=== PATIENT | male | born 1990 | race Caucasian/White ===

== ENCOUNTER 2019-05-15 12:10 | Emergency (ER) | payer BC, SELFPAY ==
[2019-05-15 12:23] VITALS: BP 132/79; PULSE 71; RESP 20; TEMP 36.6; O2SAT 100
--- NOTE | 2019-05-15 12:25 | ED.EAR ---
HPI - Ear Problem General Chief complaint: Ear Stated complaint: SORE THROAT Time Seen by Provider: 05/15/19 12:35 Source: patient and RN notes reviewed Mode of arrival: ambulatory Limitations: no limitations History of Present Illness HPI Narrative: Pt is a 28 y/o male who is a nonsmoker/nondrinker that presents to the with c/o a sore throat for a couple of days. Pt denies ear ache, cough, rhinorrhea, congestion, or fever. Pt has not been around anyone with the same Sx. He states that he works at [employer] and there was a stretch in time where there was no hot water. MD Complaint: other (sore throat) Duration: constant Associated symptoms ear: other (none) Treatment prior to arrival: none Related Data Home Medications Medication Instructions Recorded Confirmed benztropine 2 mg PO BID 05/15/19 05/15/19 ergocalciferol (vitamin D2) 1,250 mcg PO WEEKLY 05/15/19 05/15/19 folic acid 1 mg PO DAILY 05/15/19 05/15/19 guanfacine 2 mg PO DAILY 05/15/19 05/15/19 lithium carbonate 450 mg PO BID 05/15/19 05/15/19 olanzapine 10 mg PO BID 05/15/19 05/15/19 Allergies Allergy/AdvReac Type Severity Reaction Status Date / Time levothyroxine sodium Allergy Intermediate Depression Verified 05/15/19 12:19 gluten Allergy Unknown Vomiting Verified 05/15/19 12:19 ibuprofen Allergy Unknown Unknown Verified 05/15/19 12:19 lamotrigine Allergy Unknown Unknown Verified 05/15/19 12:19 Review of Systems Review of Systems: Narrative: General/Constitutional: No weight loss,fever Eyes: N0: Redness,discharge Ears/Nose/Throat: No: Epistaxis,ear discharge, ear ache, rhinorrhea. Reports sore throat Respiratory: Denies: Hemoptysis, congestion, cough Gastrointestinal: No Vomiting, Bleeding-rectal Skin: No Lumps, eruption Neurologic: No Focal Weakness,Sz Hematologic: Denies: Petechiae/Purpura Psychiatric: No: Suicida ideationl All Other Systems: Reviewed and Negative PMF Past Medical History Medical History ADHD Anxiety Bipolar 1 disorder Surgical History Surgical History H/O inguinal hernia repair Family History Family History (Updated 11/12/15 @ 23:21 by DOCTOR UNKNOWN) Mother Patient's mother is in good health Father Patient's father is in good health Social History Social History Smoking status: Never smoker Alcohol intake: never Comments At time of signature, agree with nursing past medical, surgical, social and family history. There is no relevant family history pertinent to the presenting complaint Exam Narrative: Exam Narrative: General Appearance: Well appearing, Well nourished EYE: PERRLA, Conjunctiva clear Ears: Auditory canal normal, TM normal Nose: Rhinorrhea, Mucousal erythema Mouth/Throat: MM moist, Uvula midline, Pharyngeal erythema Neck: Supple, No adenopathy Respiratory: No respiratory distress, Breath sounds equal, Clear to auscultation Cardiovascular: RRR, No JVD Musculoskeletal: Non tender, Normal strength Skin: Warm, Dry Neurological: A&O x3, CN II-XII intact Psychiatric: Normal mood, Normal affect Course Vital Signs Vital signs: Vital Signs Temperature 97.9 F 05/15/19 12:23 Pulse Rate 71 05/15/19 12:23 Respiratory Rate 05/15/19 12:23 Blood Pressure 132/79 05/15/19 12:23 Pulse Oximetry 100 05/15/19 12:23 Temperature 97.9 F 05/15/19 12:23 Pulse Rate 71 05/15/19 12:23 Respiratory Rate 05/15/19 12:23 Blood Pressure 132/79 05/15/19 12:23 Pulse Oximetry 100 05/15/19 12:23 Medical Decision Making Vital Signs Vital Signs: Vital Signs Temperature 97.9 F 05/15/19 12:23 Pulse Rate 71 05/15/19 12:23 Respiratory Rate 05/15/19 12:23 Blood Pressure 132/79 05/15/19 12:23 Pulse Oximetry 100 05/15/19 12:23 Temperature 97.9 F 05/15/19 12:23 Pulse Rate 71
== END 2019-05-15 12:54 | disposition home or self-care (01) ==
PROVIDERS: Emergency Provider Emergency Medicine; PCP Nurse Practitioner Family
DX: J02.9 Acute pharyngitis, unspecified (principal)
CPT/HCPCS: 99213; G0463

== ENCOUNTER → 2019-06-05 14:30 | Outpatient (CLI) | payer BC, SELFPAY ==
--- NOTE | ~2019-06-05 | XR_ITS ---
EXAMINATION: XR lumbar spine 2-3V EXAM DATE: 06/05/2019 15:38 INDICATION: Backache. TECHNIQUE: Lumber spine frontal, lateral, lateral L5-S1 projections for interpretation. There is no prior study for comparison. FINDINGS: There is 2-3 mm retrolisthesis L3 on L4 and L4 on L5. There is mild upper lumbar, moderate lower lumbar facet arthropathy. Sacrum, sacroiliac joints, sacral arcuate lines are intact. Paraspina l soft tissue is unremarkable. No spondylolysis suspected. IMPRESSION: Moderate lower, mild upper lumbar facet arthropathy. Reviewed, dictated and finalized at location A. 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
--- NOTE | ~2019-06-05 | XR_ITS ---
EXAMINATION: XR thoracic spine 2V EXAM DATE: 06/05/2019 15:38 INDICATION: Backache. TECHNIQUE: Frontal and lateral projections of the thoracic spine as well as lateral swimmers projecti on of the upper thoracic spine for interpretation. There is no prior study for comparison. FINDINGS: Minimal mid and lower thoracic disc disease. The vertebral bodies are aligned in the AP dim ension. Vertebral body and disc heights are well-maintained. Paraspinal soft tissue is unremarkable. IMPRESSION: Minimal thoracic spondylosis. Reviewed, dictated and finalized at location A. HNUT ICER
--- NOTE | ~2019-06-05 | XR_ITS ---
EXAMINATION: XR_CERV2-3V_CR EXAM DATE: 06/05/2019 15:38 INDICATION: Cervical pain. TECHNIQUE: Cervical spine frontal, lateral, and open-mouth odontoid projections. There is no prior study for comparison. FINDINGS: There is mild cervical facet arthropathy. There is no evidence of acute cervical fracture. The odontoid process is intact. Pre-dens space is normal. Prevertebral soft tissue is normal. Th ere are no soft tissue abnormalities identified. The vertebral bodies are aligned. Vertebral body and disc heights are well-maintained. IMPRESSION: 1. Mild cervical facet arthropathy. Reviewed, dictated and finalized at location A. 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
== END ==
PROVIDERS: PCP Nurse Practitioner Family; Visit Provider Nurse Practitioner Family
DX: M47.814 Spondylosis without myelopathy or radiculopathy, thoracic region (principal); M47.812 Spondylosis without myelopathy or radiculopathy, cervical region
CPT/HCPCS: 72040; 72070; 72100

== ENCOUNTER 2019-10-09 21:14 | Emergency (ER) | payer OTHER, SELFPAY ==
--- NOTE | ~2019-10-09 | CT_ITS ---
EXAMINATION: CT abdomen pelvis w con INDICATION: Right lower quadrant pain and fever TECHNIQUE: Computed tomographic images of the abdomen and pelvis were obtained after the administrati on of 100 cc of Omnipaque 350 intravenous contrast. The dose-length product (DLP) was 458.99 mGy-cm. Automated exposure control and iterative reconstruction technique were employed. COMPARISON: 07/21/2018 FINDINGS: The lung bases are clear. The heart size is normal. The liver, spleen, pancreas, gallbladde r, and adrenal glands are normal. The kidneys are unremarkable. No pathologically enlarged abdominal or pelvic lymph nodes are identified. There is no free intraperitoneal gas or evidence of bowel obstr uction. The appendix is normal. There is marked distention of the urinary bladder. IMPRESSION: 1. No CT correlate for the patient's symptoms. Reviewed, dictated and finalized at location A.
[2019-10-09 21:17] VITALS: BP 147/97; PULSE 91; RESP 100; TEMP 36.8; O2SAT 100
[2019-10-09 22:19] VITALS: BP 144/95; PULSE 79; RESP 19; O2SAT 99
[2019-10-09] MEDS: SODIUM CHLORIDE 0.9% IV 1,000 ML 999 ML IV CONT (22:35)
[2019-10-09 22:43] LABS: Basophils Absolute Auto 0.1 K/mm3 (0.0-0.1); Basophils Percent Auto 0.7 % (0.2-1.2); Eosinophils Absolute Auto 0.1 K/mm3 (0-0.3); Eosinophils Percent Auto 0.9 % (0-4.4); Hematocrit 45.4 % (42.0-52.0); Hemoglobin 15.3 g/dL (14.0-18.0); Immature Granulocyte Absolute 0.12 K/mm3 (0.00-0.031); Lymphocytes Absolute Auto 2.26 K/mm3 (0.9-3.2); Lymphocytes Percent Auto 19.3 % (18.3-44.2); Mean Corpuscular HGB Conc 33.7 g/dl (32-36); Mean Corpuscular Hemoglobin 29.3 pg (26-34); Mean Corpuscular Volume 86.8 fl (80-100); Mean Platelet Volume 9.7 fl (7.4-10.4); Monocytes Absolute Auto 1.1 K/mm3 (0.1-0.6); Monocytes Percent Auto 9.7 % (2.6-8.5); Neutrophils Percent Auto 68.4 % (45.5-73.1); Platelet Count Result 253 k/mm3 (150-375); Red Blood Count 5.23 M/mm3 (4.6-6.20); White Blood Count 11.7 K/mm3 (4.5-10.0)
[2019-10-09 22:56] LABS: Blood Urea Nitrogen 15 mg/dL (9-20); Calcium 9.5 mg/dL (8.4-10.2); Carbon Dioxide 27 mmol/L (22-30); Chloride 104 mmol/L (98-107); Estimated CRCL calculation 118 ml/min; Estimated Glomerular Filt Rate > 60; Glucose 97 mg/dL (75-110); Potassium 3.8 mmol/L (3.4-5.0); Sodium 136 mmol/L (137-145)
[2019-10-10 00:07] VITALS: BP 98/63; PULSE 63; RESP 16; TEMP 37.1; O2SAT 98
--- NOTE | 2019-10-10 00:46 | ED.FEVER ---
HPI - Fever General Chief Complaint: Fever Stated Complaint: fever/ exhausted Time Seen by Provider: 10/09/19 22:15 History of Present Illness HPI Narrative: Patient is a 28-year-old male who presents ER with concerns for fever. Reports his temperature was 101 ?F. Reports it occurred when he was being screened at a local establishment where he got no facial. He has no runny nose/sore throat/cough. He has had 1 loose stools today and has some mild lower abdominal discomfort related to it. No burning urination or urinary frequency. No known contacts with COVID-19. Related Data Home Medications Medication Instructions Recorded Confirmed benztropine 2 mg PO BID 05/15/19 05/15/19 folic acid 1 mg PO DAILY 05/15/19 05/15/19 guanfacine 2 mg PO DAILY 05/15/19 05/15/19 lithium carbonate 450 mg PO BID 05/15/19 05/15/19 olanzapine 10 mg PO BID 05/15/19 05/15/19 Allergies Allergy/AdvReac Type Severity Reaction Status Date / Time levothyroxine sodium Allergy Intermediate Depression Verified 10/09/19 22:20 gluten Allergy Unknown Vomiting Verified 10/09/19 22:20 ibuprofen Allergy Unknown Unknown Verified 10/09/19 22:20 lamotrigine Allergy Unknown Unknown Verified 10/09/19 22:20 Review of Systems Review of Systems: All systems reviewed & are unremarkable except as noted in HPI and below Constitutional: Constitutional: Denies chills, Denies fatigue and Reports fever(s) ENT: Denies nasal congestion and Denies sore throat Cardiovascular: Cardiovascular: Denies chest pain and Denies radiating jaw, neck or arm pain Gastrointestinal: Gastrointestinal: Reports abdominal pain, Reports diarrhea, Denies nausea and Denies vomiting Genitourinary: Genitourinary: Denies dysuria and Denies urinary frequency Musculoskeletal: Musculoskeletal: Denies back pain and Denies muscle cramps PMFSH Family History Family History (Updated 11/12/15 @ 23:21 by DOCTOR UNKNOWN) Mother Patient's mother is in good health Father Patient's father is in good health Social History Social History Smoking status: Never smoker Alcohol intake: never Exam Narrative: Exam Narrative: GENERAL: Well-appearing, well-nourished, and in no acute distress. HEAD: Normocephalic, atraumatic. ENT: Mucous membranes moist. CHEST: Clear to auscultation. No respiratory distress. HEART: Regular rate and rhythm. Normal peripheral pulses. ABDOMEN: Soft, TTP to the RLQ w/o guarding, nondistended. EXTREMITIES: Normal range of motion. No edema. SKIN: Warm, dry, no rash. NEURO: Alert and oriented x3. Course MEDICAL ASSISTANT CARDIOLOGY/PA Physician Supervision Unremarkable evaluation. Discharge home. Vital Signs Vital signs: Vital Signs Temperature 98.3 F 10/09/19 21:17 Pulse Rate 91 10/09/19 21:17 Respiratory Rate 100 H 10/09/19 21:17 Blood Pressure 147/97 H 10/09/19 21:17 Pulse Oximetry 100 10/09/19 21:17 Temperature 98.7 F 10/10/19 00:07 Pulse Rate 63 10/10/19 00:07 Respiratory Rate 16 10/10/19 00:07 Blood Pressure 98/63 L 10/10/19 00:07 Pulse Oximetry 98 10/10/19 00:07 MDM - Fever Lab Data Result diagrams: 10/09/19 22:36 10/09/19 22:36 Labs: Lab Results 10/09/19 10/09/19 Range/Units 22:36 22:36 WBC 11.7 H (4.5-10.0) K/mm3 RBC 5.23 (4.6-6.20) M/mm3 Hgb 15.3 (14.0-18.0) g/dL Hct 45.4 (42.0-52.0) % MCV 86.8 (80-100) fl MCH 29.3 (26-34) pg MCHC 33.7 (32-36) g/dl RDW 12.0 (11.5-14.5) % Plt Count 253 (150-375) k/mm3 MPV 9.7 (7.4-10.4) fl Immature Gran % (Auto) 1.0 H (0-0.5) % Neut % (Auto) 68.4 (45.5-73.1) % Lymph % (Auto) 19.3 (18.3-44.2) % [place] % (Auto) 9.7 H (2.6-8.5) % Eos % (Auto) 0.9 (0-4.4) % Baso % (Auto) 0.7 (0.2-1.2) % Lymph # (Auto) 2.26 (0.9-3.2) K/mm3 [place] # (Auto) 1.1 H (0.1-0.6) K/mm3 Eos # (Auto) 0.1 (0-0.3) K/mm3 Baso # (Auto) 0.1 (0.0-0.1) K/mm3 Abs Immat Gr
== END 2019-10-10 01:17 | disposition home or self-care (01) ==
PROVIDERS: Emergency Provider Emergency Medicine; PCP Nurse Practitioner Family
DX: B34.9 Viral infection, unspecified (principal)
CPT/HCPCS: 36415; 74177; 80048; 85025; 96360; 96361; 99284; J7030; Q9967

== ENCOUNTER 2019-10-10 13:35 | Emergency (ER) | payer OTHER, SELFPAY ==
--- NOTE | 2019-10-10 14:00 | PC.NURSE ---
Left prior to being seen--decided to go back to the ER-he was there last night and received hydration but is continuing to feel bad and wants hydration and reevalution.
== END 2019-10-10 14:08 | disposition home or self-care (01) ==
LOC: EXPCOLL 13:38
PROVIDERS: Emergency Provider Nurse Practitioner; PCP Nurse Practitioner Family
DX: Z53.21 Procedure and treatment not carried out due to patient leaving prior to being seen by health care provider (principal)
CPT/HCPCS: 99199

== ENCOUNTER 2020-04-26 17:15 | Emergency (ER) | payer OTHER, SELFPAY ==
--- NOTE | ~2020-04-26 | XR_ITS ---
EXAMINATION: XR chest 1V portable DATE: 04/26/2020 19:07 INDICATION: Chills. Tingling extending from the right shoulder to fingertips. TECHNIQUE: frontal view of the chest was obtained. COMPARISON: Chest radiograph dated 05/29/2012 FINDINGS: Unchanged small calcified nodule in the right lower lung zone consistent with old granulomatous disea se. No other airspace opacities, pulmonary edema, pleural effusion or pneumothorax. The cardiomediast inal silhouette is normal. Minimal S-shaped thoracic curvature. IMPRESSION: 1. No acute cardiopulmonary disease. Reviewed, dictated and finalized at location A. 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
[2020-04-26 17:21] VITALS: BP 142/92; PULSE 89; RESP 14; TEMP 36.8; O2SAT 100
[2020-04-26 18:46] VITALS: BP 136/88; PULSE 77; RESP 15; O2SAT 98
--- NOTE | 2020-04-26 20:20 | ED.GENADULT ---
HPI - General Adult General Chief complaint: Unspecified Stated complaint: chills Time Seen by Provider: 04/26/20 18:48 Source: patient Mode of arrival: ambulatory Limitations: no limitations History of Present Illness HPI narrative: Patient 29-year-old male who presents to emergency department for evaluation of right upper extremity burning and tingling that began while at work patient denies injury or trauma or similar occurrence in the past patient denies taking thing for his symptoms and on arrival is in no distress and does not recall any injury or similar occurrence patient on arrival is in no distress Related Data Home Medications Medication Instructions Recorded Confirmed benztropine 2 mg PO BID 05/15/19 05/15/19 folic acid 1 mg PO DAILY 05/15/19 05/15/19 guanfacine 2 mg PO DAILY 05/15/19 05/15/19 lithium carbonate 450 mg PO BID 05/15/19 05/15/19 olanzapine 10 mg PO BID 05/15/19 05/15/19 buspirone mg 04/26/20 Allergies Allergy/AdvReac Type Severity Reaction Status Date / Time levothyroxine sodium Allergy Intermediate Depression Verified 04/26/20 19:14 gluten Allergy Unknown Vomiting Verified 04/26/20 19:14 ibuprofen Allergy Unknown Unknown Verified 04/26/20 19:14 lamotrigine Allergy Unknown Unknown Verified 04/26/20 19:14 Review of Systems Review of Systems: All systems reviewed & are unremarkable except as noted in HPI and below PMFSH Past Medical History Medical History (Updated 04/26/20 @ 20:23 by Johnie Cisneros PA-C) ADHD Anxiety Bipolar 1 disorder Surgical History Surgical History H/O inguinal hernia repair Family History Family History (Updated 11/12/15 @ 23:21 by DOCTOR UNKNOWN) Mother Patient's mother is in good health Father Patient's father is in good health Social History Social History Smoking status: Never smoker Alcohol intake: never Exam Narrative: Exam Narrative: GENERAL: Well-appearing, well-nourished, and in no acute distress. HEAD: Normocephalic, atraumatic. EYES: PERRLA and EOMI. ENT: Nares clear, no rhinorrhea or epistaxis. Mucous membranes moist. NECK: Supple. No adenopathy or masses. CHEST: Clear to auscultation. No respiratory distress. No wheezes rales or rhonchi HEART: Regular rate and rhythm. No murmur heard. Normal peripheral pulses. EXTREMITIES: Normal range of motion. No edema. Tenderness of the right upper paraspinal thoracic region no midline cervical or thoracic tenderness no deformity of the right upper extremity SKIN: Warm, dry, no rash. NEURO: No focal deficits. Alert and oriented x3. Neurovascularly intact. Capillary refill less than 2 seconds PSYCH: Normal mood and affect. Course Course Emergency Course: Patient in the room no distress aware of case findings treatment plan diagnosis felt appropriate for discharge home Vital Signs Vital signs: Vital Signs Temperature 98.2 F 04/26/20 17:21 Pulse Rate 89 04/26/20 17:21 Respiratory Rate 14 04/26/20 17:21 Blood Pressure 142/92 H 04/26/20 17:21 Pulse Oximetry 100 04/26/20 17:21 Temperature 98.2 F 04/26/20 17:21 Pulse Rate 77 04/26/20 18:46 Respiratory Rate 15 04/26/20 18:46 Blood Pressure 136/88 04/26/20 18:46 Pulse Oximetry 98 04/26/20 18:46 Medical Decision Making MDM Narrative Medical decision making narrative: Patients injury or pain is consistent with musculoskeletal etiology. No signs of neurological or vascular compromise on exam. Compartments and tisues are soft without signs of compartment syndrome. Pain is felt appropriate for further evaluation on an outpatient basis. Vital Signs Vital Signs: Vital Signs Temperature 98.2 F 04/26/20 17:21 Pulse Rate 89 04/26/20 17:21 Respiratory Rate 14 04/26/20 17:21 Blood Pressure 142/92 H 04/26/20 17:21 Pulse Oximetry 100 04/26/20 17:21 Temperature 98.2 F 01
== END 2020-04-26 20:31 | disposition home or self-care (01) ==
PROVIDERS: Emergency Provider Emergency Medicine; PCP Nurse Practitioner Family
DX: M79.601 Pain in right arm (principal); F90.9 Attention-deficit hyperactivity disorder, unspecified type; F41.9 Anxiety disorder, unspecified; F31.9 Bipolar disorder, unspecified
CPT/HCPCS: 71045; 99283

== ENCOUNTER 2020-05-08 11:01 | Emergency (ER) | payer OTHER, SELFPAY ==
--- NOTE | ~2020-05-08 | CT_ITS ---
EXAMINATION: CT cervical spine wo con DATE: 05/08/2020 11:52 INDICATION: Bilateral arm numbness TECHNIQUE: Computed tomography (CT) of the cervical spine was performed without intravenous contrast. The dose-length product (DLP) was 365.40 mGy-cm. Automated exposure control and iterative reconstruc tion technique were employed. COMPARISON: None FINDINGS: There is no fracture, dislocation, or subluxation. The vertebral body heights, alignment, a nd intervertebral disc spaces are normal. The paravertebral soft tissues are unremarkable. The odonto id is intact. IMPRESSION: 1. Unremarkable cervical spine. Reviewed, dictated and finalized at location A. 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
[2020-05-08 11:02] VITALS: BP 141/93; PULSE 76; RESP 20; TEMP 36.5; O2SAT 96
--- NOTE | 2020-05-08 12:23 | ED.GENADULT ---
HPI - General Adult General Chief complaint: Unspecified Stated complaint: R ARM NUMBNESS [id number] Time Seen by Provider: 05/08/20 11:10 Source: patient and old records reviewed Mode of arrival: ambulatory Limitations: no limitations History of Present Illness HPI narrative: Patient is a 29-year-old male who presents with right arm numbness tingling and occasional weakness has been going on for roughly a month, presented to the emergency department for this in the past patient has not taken anything for his symptoms patient denies injury trauma patient notes that he does get his neck adjusted roughly 5 times a week patient had seen primary care was reassured and advised to follow-up in the recent past patient otherwise has no other complaints presents in no distress Related Data Home Medications Medication Instructions Recorded Confirmed benztropine 2 mg PO BID 05/15/19 05/15/19 folic acid 1 mg PO DAILY 05/15/19 05/15/19 guanfacine 2 mg PO DAILY 05/15/19 05/15/19 lithium carbonate 450 mg PO BID 05/15/19 05/15/19 olanzapine 10 mg PO BID 05/15/19 05/15/19 buspirone mg 04/26/20 Allergies Allergy/AdvReac Type Severity Reaction Status Date / Time levothyroxine sodium Allergy Intermediate Depression Verified 05/08/20 11:08 gluten Allergy Unknown Vomiting Verified 05/08/20 11:08 ibuprofen Allergy Unknown Unknown Verified 05/08/20 11:08 lamotrigine Allergy Unknown Unknown Verified 05/08/20 11:08 Review of Systems Review of Systems: All systems reviewed & are unremarkable except as noted in HPI and below PMFSH Past Medical History Medical History (Updated 05/08/20 @ 12:27 by Johnie Cisneros PA-C) ADHD Anxiety Bipolar 1 disorder Surgical History Surgical History H/O inguinal hernia repair Family History Family History (Updated 11/12/15 @ 23:21 by DOCTOR UNKNOWN) Mother Patient's mother is in good health Father Patient's father is in good health Social History Social History Smoking status: Never smoker Alcohol intake: never Gender identity (if verbalized by the patient): Male Exam Narrative: Exam Narrative: GENERAL: Well-appearing, well-nourished, and in no acute distress. HEAD: Normocephalic, atraumatic. EYES: PERRLA and EOMI. ENT: Nares clear, no rhinorrhea or epistaxis. Mucous membranes moist. CHEST: Clear to auscultation. No respiratory distress. No wheezes rales or rhonchi HEART: Regular rate and rhythm. No murmur heard. Normal peripheral pulses. EXTREMITIES: Normal range of motion. No edema. No midline paraspinal cervical tenderness. No tenderness of the right upper extremity SKIN: Warm, dry, no rash. NEURO: No focal deficits. Alert and oriented x3. Cranial nerves II through XII grossly intact. Motor and sensory intact and symmetrical. Neurovascularly intact. Normal speech and gait PSYCH: Normal mood and affect. Course Course Emergency Course: Patient evaluated in the emergency department for paresthesias to the right upper extremity discharged back to primary care for further evaluation given reasons to return vital signs and ABCs intact and stable felt appropriate for outpatient reevaluation Vital Signs Vital signs: Vital Signs Temperature 97.7 F 05/08/20 11:02 Pulse Rate 76 05/08/20 11:02 Respiratory Rate 20 05/08/20 11:02 Blood Pressure 141/93 H 05/08/20 11:02 Pulse Oximetry 96 05/08/20 11:02 Temperature 97.7 F 05/08/20 11:02 Pulse Rate 76 05/08/20 11:02 Respiratory Rate 20 05/08/20 11:02 Blood Pressure 141/93 H 05/08/20 11:02 Pulse Oximetry 96 05/08/20 11:02 Medical Decision Making MDM Narrative Medical decision making narrative: Patients injury or pain is consistent with musculoskeletal etiology. No signs of neurological or vascular compromise on exam. Compartments and tisues are soft without signs of compartment syndrom
== END 2020-05-08 12:51 | disposition home or self-care (01) ==
PROVIDERS: Emergency Provider Family Medicine; PCP Physician Assistant
DX: R20.2 Paresthesia of skin (principal); F90.9 Attention-deficit hyperactivity disorder, unspecified type; F41.9 Anxiety disorder, unspecified; F31.9 Bipolar disorder, unspecified
CPT/HCPCS: 72125; 99284

== ENCOUNTER 2020-06-08 21:47 | Emergency (ER) | payer OTHER, SELFPAY ==
--- NOTE | ~2020-06-08 | CT_ITS ---
EXAMINATION: CT brain wo con, CT cervical spine wo con EXAM DATE: 06/09/2020 01:51 (accession [id number]), 06/09/2020 01:52 (accession [id number]) INDICATION: Syncope. Dizziness. Nausea and vomiting. TECHNIQUE: Spiral CT of the head was performed without contrast. Axial, coronal and sagittal images were reviewed. Spiral CT of the cervical spine was performed without contrast. Axial images were rev iewed. Coronal and sagittal reformatted images were also reviewed. The dose-length product (DLP) fo r this examination was 681.00 (accession [id number]), 461.50 (accession [id number]) mGy-cm. The exposure was tailored according to patient size, and iterative reconstruction (ASIR) was used as additional dose reduction technique. Comparison is made to prior examination from 05/29/[address], 05/08/[address] FINDINGS: HEAD CT: There is no acute intraparenchymal hemorrhage. No evidence of intraparenchymal brain mass l esion. No evidence of acute infarction. There is no mass effect or midline shift. There is no obstru ctive hydrocephalus suspected. There are no extra-axial collections. There are no acute calvarial f ractures. The orbits are unremarkable. Soft tissue is unremarkable. Minimal left maxillary sinus m ucoperiosteal thickening. CERVICAL CT: There is no evidence of acute cervical fracture. The odontoid process is intact. Pre- dens space is normal. Prevertebral soft tissue is normal. There are no soft tissue abnormalities id entified. There is no disc space widening or traumatic vertebral body subluxation suspected. The ve rtebral bodies are aligned in the AP dimension. Vertebral body and disc heights are well-maintained. No more than mild cervical facet and uncovertebral joint arthropathy without central canal or neural foraminal stenosis. The discs appear to be confined to their endplate margins. Lung apices unremarkab le. IMPRESSION: 1. No acute intracranial findings or cervical fracture. Reviewed, dictated and finalized at location B. H CUTTER IMPRESSION: 1. No acute intracranial findings or cervical fracture.
--- NOTE | 2020-06-08 21:50 | ECG_ITS ---
Measurements Intervals [place] Rate: 71 P: 70 IL: 130 QRS: 87 QRSD: 93 T: 35 QT: 378 QTc: 412 Interpretive Statements SINUS RHYTHM RSR' IN V1 OR V2, CONSIDER RIGHT VENTRICULAR HYPERTROPHY OR RIGHT VCD MINIMAL Q WAVES- ANTEROLAT/INF LEADS BASELINE ARTIFACT- V1-V2 BORDERLINE ECG Electronically Signed On 06-09-2020 6:51:36 PAYROLL OFFICER by Javier Beckwith D.O.
[2020-06-08 22:18] VITALS: BP 131/85; PULSE 82; RESP 15; TEMP 36.8; O2SAT 100
[2020-06-08 22:34] LABS: Basophils Absolute Auto 0.1 K/mm3 (0.0-0.1); Basophils Percent Auto 0.7 % (0.2-1.2); Eosinophils Absolute Auto 0.1 K/mm3 (0-0.3); Eosinophils Percent Auto 1.2 % (0-4.4); Hematocrit 41.5 % (42.0-52.0); Hemoglobin 14.4 g/dL (14.0-18.0); Immature Granulocyte Absolute 0.02 K/mm3 (0.00-0.031); Immature Granulocyte Percent A 0.2 % (0-0.5); Lymphocytes Absolute Auto 1.81 K/mm3 (0.9-3.2); Lymphocytes Percent Auto 19.7 % (18.3-44.2); Mean Corpuscular HGB Conc 34.7 g/dl (32-36); Mean Corpuscular Hemoglobin 29.6 pg (26-34); Mean Corpuscular Volume 85.4 fl (80-100); Mean Platelet Volume 9.2 fl (7.4-10.4); Monocytes Percent Auto 11.2 % (2.6-8.5); Neutrophils Absolute Auto 6.2 K/mm3 (1.3-6.7); Platelet Count Result 252 k/mm3 (150-375); Red Blood Count 4.86 M/mm3 (4.6-6.20); Red Cell Distribution Width 12.3 % (11.5-14.5); White Blood Count 9.2 K/mm3 (4.5-10.0)
[2020-06-08 22:47] LABS: Alanine Aminotransferase 16 U/L (4-50); Albumin Level 4.4 g/dL (3.5-5.1); Alkaline Phosphatase 65 U/L (38-126); Anion Gap 9 mmol/L (8-16); Aspartate Amino Transferase 21 U/L (17-59); Bilirubin,Total 0.3 mg/dL (0.2-1.3); Blood Urea Nitrogen 16 mg/dL (9-20); Calcium 9.4 mg/dL (8.4-10.2); Carbon Dioxide 27 mmol/L (22-30); Chloride 104 mmol/L (98-107); Estimated CRCL calculation 132 ml/min; Estimated Glomerular Filt Rate > 60; Glucose 111 mg/dL (75-110); Lipase 60 U/L (23-300); Potassium 3.7 mmol/L (3.4-5.0); Sodium 140 mmol/L (137-145)
[2020-06-09 00:20] VITALS: BP 109/68; PULSE 100; RESP 12; O2SAT 100
--- NOTE | 2020-06-09 01:43 | ED.SYNCOPE ---
HPI - Syncope General Chief Complaint: Syncope Stated Complaint: syncope, n/v, dizzy Time Seen by Provider: 06/09/20 01:34 Source: patient and family Mode of arrival: ambulatory Limitations: no limitations History of Present Illness HPI narrative: 29-year-old male was brought into the emergency department with his family members for a reported syncopal episode. Patient stated that he is been feeling dizzy and lightheaded that he describes as both world spinning and lightheadedness. Patient states that some of his psychiatric medications have been altered in their dosages. He is not sure if this could be playing a role. Just before arrival the patient states that he was in his bathroom when he passed out. His parents state that they tried to open the door to the bathroom but his body was blocking it. Eventually they were able to push him out of the way and get into the room. He was unconscious and had hit his head. Patient states that he does not recall hitting his head but feels fine at the time of my interview. Related Data Home Medications Medication Instructions Recorded Confirmed benztropine 2 mg PO BID 05/15/19 05/15/19 folic acid 1 mg PO DAILY 05/15/19 05/15/19 guanfacine 2 mg PO DAILY 05/15/19 05/15/19 lithium carbonate 450 mg PO BID 05/15/19 05/15/19 olanzapine 10 mg PO BID 05/15/19 05/15/19 buspirone mg 04/26/20 Allergies Allergy/AdvReac Type Severity Reaction Status Date / Time levothyroxine sodium Allergy Intermediate Depression Verified 05/08/20 11:08 gluten Allergy Unknown Vomiting Verified 05/08/20 11:08 ibuprofen Allergy Unknown Unknown Verified 05/08/20 11:08 lamotrigine Allergy Unknown Unknown Verified 05/08/20 11:08 Review of Systems Review of Systems: Narrative: CONSTITUTIONAL: Denies fever, chills, or sweats. EYES: Denies visual changes, redness, or discharge. ENT: Denies rhinorrhea, congestion, sore throat, or otalgia. CARDIOVASCULAR: Denies chest pain, palpitations, or edema. RESPIRATORY: Denies cough or dyspnea. GASTROINTESTINAL: Denies abdominal pain, nausea, vomiting, or diarrhea. GENITOURINARY: Denies dysuria or hematuria. SKIN: Denies rash or itching. MUSCULOSKELETAL: Denies back pain, joint pain, or myalgia. NEUROLOGIC: Denies headache, numbness, dizziness, or weakness. PSYCHIATRIC: Denies anxiety or depression. [facility] Past Medical History Medical History (Updated 06/09/20 @ 03:04 by Ismael Govea DO) ADHD Anxiety Bipolar 1 disorder Surgical History Surgical History H/O inguinal hernia repair Family History Family History Mother Patient's mother is in good health Father Patient's father is in good health Social History Social History Smoking status: Never smoker Alcohol intake: never Gender identity (if verbalized by the patient): Male Exam Narrative: Exam Narrative: GENERAL: Well-appearing, well-nourished, and in no acute distress. Multicolored hair, blue sparkly fingernails, presents with stuffed animal HEAD: Normocephalic, atraumatic. EYES: PERRLA and EOMI. ENT: Nares clear, no rhinorrhea or epistaxis. Mucous membranes moist. NECK: Supple. No adenopathy or masses. No carotid bruits or JVD CHEST: Clear to auscultation. No respiratory distress. No wheezes rales or rhonchi HEART: Regular rate and rhythm. No murmur heard. Normal peripheral pulses. ABDOMEN: Soft, nontender, nondistended, normal active bowel sounds. EXTREMITIES: Normal range of motion. No edema. SKIN: Warm, dry, no rash. NEURO: No focal deficits. Alert and oriented x3. PSYCH: Normal mood and affect. Course Vital Signs Vital signs: Vital Signs Temperature 36.8 C 06/08/20 22:18 Pulse Rate 82 06/08/20 22:18 Respiratory Rate 15 06/08/20 22:18 Blood Pressure 131/85 06/08/20 22:18 Pulse Oximetry 100 06/08/20 22:18
[2020-06-09 01:53] VITALS: BP 150/103; PULSE 69; RESP 15; O2SAT 100
[2020-06-09 01:54] VITALS: PULSE 69
[2020-06-09 02:01] LABS: Magnesium 1.9 mg/dL (1.6-2.3)
[2020-06-09 02:44] LABS: Lithium 0.2 mmol/L (0.6-1.2)
[2020-06-09 02:48] LABS: Add Urine Microscopic? NO; Appearance Urine Clear (Clear); Bilirubin Urine Negative (Negative); Blood Urine Negative (Negative); Color Urine Straw (Yellow); Glucose Urine UA Negative (Negative); Ketones Urine Negative (Negative); Leukocyte Esterase Ur Negative LEU/UL (Negative); Nitrate Urine Negative (Negative); Protein Urine Negative (Negative); Specific Grav Ur 1.012 (1.001-1.035); Urobilinogen Urine Negative mg/dL (<2.0)
[2020-06-09 02:56] LABS: Amphetamine Screen Urine Negative (Negative); Barbiturate Screen Urine Negative (Negative); Benzodiazepines Screen Urine Negative (Negative); Cannabinoid Screen Urine Negative (Negative); Cocaine Screen Urine Negative (Negative); Methadone Screen Urine Negative (Negative); Opiate Screen Urine Negative (Negative); Phencyclidine Screen Urine Negative (Negative)
== END 2020-06-09 03:46 | disposition home or self-care (01) ==
PROVIDERS: Emergency Provider Emergency Medicine; PCP Physician Assistant
DX: R55 Syncope and collapse (principal); F90.9 Attention-deficit hyperactivity disorder, unspecified type; F41.9 Anxiety disorder, unspecified; F31.9 Bipolar disorder, unspecified; R94.31 Abnormal electrocardiogram [ECG] [EKG]
CPT/HCPCS: 36415; 70450; 72125; 80053; 80178; 80307; 81003; 83690; 83735; 85025; 93005; 99284

== ENCOUNTER 2020-07-28 19:00 | Emergency (ER) | payer BC, SELFPAY ==
[2020-07-28 19:22] VITALS: BP 135/84; PULSE 75; RESP 16; TEMP 37.1; O2SAT 99
--- NOTE | 2020-07-28 20:00 | ED.EAR ---
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 States he did not notice the blood and was told by a coworker. 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 He has not tried to clean his right ear out or flush it since coworker noted the blood. Patient states he has not recently been ill. States his PCP has recently ordered him a hearing screen as he has been complaining of ringing in his ears. He showed up for his hearing test last week, but there were some issues with his insurance and appointment and he was not able to get it done. States that this time he has no difficulty hearing me in a quiet room, but he does have difficulty hearing people when there is a lot of ambient noise. MD Complaint: ear discharge Location: right ear Related Data Home Medications Medication Instructions Recorded Confirmed benztropine 1 mg PO BID 07/28/20 07/28/20 folic acid 1 mg PO DAILY 07/28/20 07/28/20 hydroxyzine HCl 1 mg PO BID 07/28/20 07/28/20 lithium carbonate 1 mg PO BID 07/28/20 07/28/20 olanzapine 1 mg PO TID 07/28/20 07/28/20 Allergies Allergy/AdvReac Type Severity Reaction Status Date / Time levothyroxine sodium Allergy Intermediate Depression Verified 07/28/20 19:18 gluten Allergy Unknown Vomiting Verified 07/28/20 19:18 ibuprofen Allergy Unknown Unknown Verified 07/28/20 19:18 lamotrigine Allergy Unknown Unknown Verified 07/28/20 19:18 Review of Systems Review of Systems: Narrative: CONSTITUTIONAL: Denies body aches, fever, chills, or sweats. EYES: Denies visual changes, redness, or discharge. ENT: Denies rhinorrhea, congestion, sore throat. + Right ear discharge, bilateral ear ringing CARDIOVASCULAR: Denies chest pain, palpitations, or edema. RESPIRATORY: Denies cough or dyspnea. GASTROINTESTINAL: Denies abdominal pain, nausea, vomiting, or diarrhea. GENITOURINARY: Denies dysuria or hematuria. SKIN: Denies rash, itching, or wounds. MUSCULOSKELETAL: Denies back pain, joint pain, or myalgia. NEUROLOGIC: Denies headache, numbness, tingling, or weakness. PSYCH: Denies depression or anxiety. [facility] Past Medical History Medical History (Updated 07/29/20 @ 00:01 by Latoya Patton) ADHD Anxiety Bipolar 1 disorder Surgical History Surgical History H/O inguinal hernia repair Family History Family History Mother Patient's mother is in good health Father Patient's father is in good health Social History Social History Smoking status: Never smoker Alcohol intake: never Gender identity (if verbalized by the patient): Male Comments At time of signature, I have reviewed and agree with nursing past medical, surgical, social and family history unless otherwise noted. Please see nursing chart for further information. There is no relevant family history pertinent to the presenting complaint Exam Narrative: Exam Narrative: GENERAL: Well-appearing, well-nourished, and in no acute distress. HEAD: Normocephalic, atraumatic. EYES: EOMI. PERRL. No redness or drainage. Conjunctivae normal. ENT: Mucous membranes pink and moist. Nares clear. No rhinorrhea. TMs normal bilaterally. No blood, discharge, debris, or any other indication of previous drainage noted in the right ear canal. Throat normal. Uvula midline. NECK: Normal AROM. Supple. No lymphadenopathy. CHEST: No respiratory distres
== END 2020-07-28 20:05 | disposition home or self-care (01) ==
PROVIDERS: Emergency Provider Nurse Practitioner
DX: H93.13 Tinnitus, bilateral (principal); F31.9 Bipolar disorder, unspecified; F41.9 Anxiety disorder, unspecified
CPT/HCPCS: 99211; G0463

== ENCOUNTER 2020-08-05 16:26 | Observation (INO) | payer BC, SELFPAY ==
--- NOTE | ~2020-08-05 | CT_ITS ---
EXAMINATION: CTA brain carotid DATE: 08/06/2020 09:58 INDICATION: Syncope. Right arm paresthesias. TECHNIQUE: Computed tomographic angiography (CTA) of the head was performed without and with 100 mL O mnipaque-350 intravenous contrast. CTA of the neck was performed with intravenous contrast. Automated exposure control and iterative reconstruction technique were employed. The dose-length product was 1 766.96 mGy-cm. Maximum intensity projection and volume rendered 3D-reconstructions were created by cynthia martin technologist on a separate workstation. COMPARISON: Head CT 08/05/2020 FINDINGS: HEAD CTA: There is no intracranial hemorrhage, acute infarction, or abnormal intracranial mass lesion . The ventricles are normal in size. There is mild mucosal thickening in the paranasal sinuses. The o rbits are normal. The mastoid air cells are normal. The vertebral arteries are codominant. There is n o significant stenosis of basilar artery or the posterior cerebral arteries. There is no significant stenosis of the intracranial internal carotid arteries or anterior or middle cerebral arteries. Anter ior communicating artery is normal. The posterior communicating arteries are normal. There is no aneu rysm. NECK CTA: There is mild scarring at the lung apices. There are no pathologically enlarged lymph nodes . There is no significant stenosis of the vertebral arteries. There is no visible plaque in the proxi mal internal carotid arteries. There is 0% stenosis of the proximal right internal carotid artery rel ative to normal distal artery lumen diameter (NASCET criteria). There is 0% stenosis of the proximal left internal carotid artery relative to normal distal artery lumen diameter. There is mild cervical spondylosis. IMPRESSION: 1. Normal brain. No aneurysm or significant intracranial arterial stenosis. 2. Normal neck arteries. Reviewed, dictated and finalized at location B.
--- NOTE | ~2020-08-05 | CT_ITS ---
EXAMINATION: CT BRAIN W/O DATE: 08/05/2020 19:54 INDICATION: Syncope TECHNIQUE: Computed tomography (CT) of the head was performed without intravenous contrast. The dose- length product was 681.00 mGy-cm. Automated exposure control and iterative reconstruction technique w ere employed. COMPARISON: No prior studies for comparison. FINDINGS: Normal brain parenchymal volume for age. Normal shankar-white differentiation. No acute intrac ranial hemorrhage, infarction, mass or mass effect. No ventriculomegaly or midline shift. Midline sagittal images demonstrate a normal corpus callosum, c raniovertebral junction and sella turcica. Basilar cisterns are patent. Paranasal sinuses and mastoids are pneumatized. No depressed skull fractures. IMPRESSION: 1. No acute intracranial abnormality. Reviewed, dictated and finalized at location A.
[2020-08-05 16:40] VITALS: BP 147/89; PULSE 76; RESP 18; TEMP 36.7; O2SAT 100
--- NOTE | 2020-08-05 16:44 | ECG_ITS ---
Measurements Intervals [place] Rate: 73 P: 53 SD: 143 QRS: 83 QRSD: 96 T: 35 QT: 370 QTc: 408 Interpretive Statements SINUS RHYTHM EARLY PRECORDIAL R/S TRANSITION MINIMAL Q WAVES- ANTEROLAT/INF LEADS T WAVE ABNORMALITY IN ANTERIOR LEADS- CONSIDER ISCHEMIA BASELINE ARTIFACT- I, II, AVR BORDERLINE ECG Electronically Signed On 08-05-2020 19:58:20 CDT by Javier Beckwith D.O.
[2020-08-05 17:11] LABS: Basophils Absolute Auto 0.1 K/mm3 (0.0-0.1); Basophils Percent Auto 0.8 % (0.2-1.2); Eosinophils Percent Auto 0.4 % (0-4.4); Hematocrit 42.1 % (42.0-52.0); Hemoglobin 14.1 g/dL (14.0-18.0); Immature Granulocyte Absolute 0.04 K/mm3 (0.00-0.031); Immature Granulocyte Percent A 0.4 % (0-0.5); Lymphocytes Absolute Auto 1.43 K/mm3 (0.9-3.2); Mean Corpuscular HGB Conc 33.5 g/dl (32-36); Mean Corpuscular Hemoglobin 29.2 pg (26-34); Mean Corpuscular Volume 87.2 fl (80-100); Mean Platelet Volume 9.5 fl (7.4-10.4); Monocytes Absolute Auto 0.7 K/mm3 (0.1-0.6); Monocytes Percent Auto 6.8 % (2.6-8.5); Neutrophils Absolute Auto 7.3 K/mm3 (1.3-6.7); Neutrophils Percent Auto 76.6 % (45.5-73.1); Platelet Count Result 238 k/mm3 (150-375); Red Blood Count 4.83 M/mm3 (4.6-6.20); Red Cell Distribution Width 12.1 % (11.5-14.5); White Blood Count 9.5 K/mm3 (4.5-10.0)
[2020-08-05 17:20] LABS: Anion Gap 8 mmol/L (8-16); Blood Urea Nitrogen 11 mg/dL (9-20); Calcium 9.4 mg/dL (8.4-10.2); Carbon Dioxide 28 mmol/L (22-30); Chloride 106 mmol/L (98-107); Estimated CRCL calculation 103 ml/min; Estimated Glomerular Filt Rate > 60; Glucose 101 mg/dL (75-110); Potassium 3.6 mmol/L (3.4-5.0); Sodium 142 mmol/L (137-145)
--- NOTE | 2020-08-05 19:45 | ED.GENADULT ---
HPI - General Adult General Chief complaint: Syncope Stated complaint: syncope Time Seen by Provider: 08/05/20 19:33 Source: patient Mode of arrival: EMS History of Present Illness HPI narrative: Patient is a 29 y/o male brought in by EMS for passing out. Mother states that patient went to [email or web address] to get some food. He called her to tell her that he was not feeling well. She states that she went to [email or web address] and suggested that he go home. He walked into his car and passed out. She then called EMS. She states that he was out for 10 minutes. There is no alleviating or exacerbating factor. Patient currently feels dizzy and tired. He denies any pain. Related Data Home Medications Medication Instructions Recorded Confirmed benztropine 1 mg PO BID 07/28/20 07/28/20 folic acid 1 mg PO DAILY 07/28/20 07/28/20 hydroxyzine HCl 1 mg PO BID 07/28/20 07/28/20 lithium carbonate 1 mg PO BID 07/28/20 07/28/20 olanzapine 1 mg PO TID 07/28/20 07/28/20 benztropine 2 mg PO BID 08/05/20 08/05/20 guanfacine 2 mg PO BID 08/05/20 08/05/20 Allergies Allergy/AdvReac Type Severity Reaction Status Date / Time levothyroxine sodium Allergy Intermediate Depression Verified 08/05/20 20:50 gluten Allergy Unknown Vomiting Verified 08/05/20 20:50 ibuprofen Allergy Unknown Unknown Verified 08/05/20 20:50 lamotrigine Allergy Unknown Unknown Verified 08/05/20 20:50 Review of Systems Constitutional: Constitutional: Denies chills, Reports fatigue, Denies fever(s), Denies headache(s) and Denies weakness Eyes: Eyes: Denies blurry vision ENT: Denies headache(s) and Denies neck pain Cardiovascular: Cardiovascular: Denies chest pain and Denies dyspnea Respiratory: Respiratory: Denies cough and Denies dyspnea Gastrointestinal: Gastrointestinal: Denies abdominal pain, Denies diarrhea, Denies nausea and Denies vomiting Genitourinary: Genitourinary: Denies hematuria and Denies dysuria Musculoskeletal: Musculoskeletal: Denies back pain and Denies neck pain Neurologic: Reports dizziness, Reports syncope, Denies headache(s) and Denies weakness [facility] Past Medical History Medical History (Updated 08/05/20 @ 22:21 by Mariesla Stout MD) ADHD Anxiety Bipolar 1 disorder Surgical History Surgical History H/O inguinal hernia repair Family History Family History Mother Patient's mother is in good health Father Patient's father is in good health Social History Social History Smoking status: Never smoker Alcohol intake: never Gender identity (if verbalized by the patient): Male Exam Const: General: no acute distress and well developed Orientation/consciousness: oriented to person, oriented to place, oriented to time and patient oriented x3 HENMT: Head: normocephalic Ears: external ears normal General nose exam: Normal external nose present Eyes: General: appearance normal, both eyes and all related structures Conjunctivae: conjunctivae normal Neck: Neck: normal visual inspection and full ROM Chest: Chest palpation & inspection: normal inspection of the chest and no tenderness Resp: Effort & Inspection: normal respiratory effort Auscultation: clear to auscultation bilaterally Cardio: Rate: regular rate Rhythm: regular rhythm GI: GI Palp: No abdominal tenderness and Yes Soft to palpation Skin: General skin exam: normal color and turgor normal Neuro: General: oriented to person, oriented to place, oriented to time and patient oriented x3 Cranial nerves: Yes CN's II-XII intact bilaterally Cognition (Neuro): normal cognition Speech: normal speech Motor exam (neuro): 5/5 motor strength present throughout Sensory Exam: normal sensation Coordination: [id number] test normal and iqrp-[id number]-tola test normal Extrem: General: normal to inspection, full ROM and no pedal edema Ps
[2020-08-05 20:17] LABS: Add Urine Microscopic? NO; Appearance Urine Clear (Clear); Bilirubin Urine Negative (Negative); Blood Urine Negative (Negative); Color Urine Straw (Yellow); Glucose Urine UA Negative (Negative); Ketones Urine Negative (Negative); Leukocyte Esterase Ur Negative LEU/UL (Negative); Nitrate Urine Negative (Negative); Protein Urine Negative (Negative); Specific Grav Ur 1.008 (1.001-1.035); Urobilinogen Urine Negative mg/dL (<2.0)
[2020-08-05 20:54] VITALS: BP 152/99; PULSE 70; RESP 20; O2SAT 100
[2020-08-05 21:01] LABS: Amphetamine Screen Urine Negative (Negative); Barbiturate Screen Urine Negative (Negative); Benzodiazepines Screen Urine Negative (Negative); Cannabinoid Screen Urine Negative (Negative); Cocaine Screen Urine Negative (Negative); Methadone Screen Urine Negative (Negative); Opiate Screen Urine Negative (Negative); Phencyclidine Screen Urine Negative (Negative)
--- NOTE | 2020-08-05 21:44 | PM.IMHP ---
H&P: HPI History of Present Illness Date/Time: 08/05/20 21:44 Chief Complaint: Multiple episodes of passing out today+ Narrative: This is a 29-year-old male who is known to have bipolar disorder on lithium and olanzapine and presented to the hospital today with a complaint of passing out multiple times. The patient reports that he passes out about 2-4 times a week. Today he went to [facility] to get some food when suddenly he started to feel bad. He states that he suddenly had a diffuse headache and felt weak. He decided to sit down and his friend who was with him realize that the patient had passed out. He woke up after few minutes as his friend was poking and prodding him. He called his mother who came to get him and she suggested that he shot the windows of his car before she drove him home. He remembers getting into the car and then passed out. He did not even have time to close the front door before he passed out. The patient's mother called EMS and reported that he was passed out for approximately 10 minutes. The patient denies any type of chest pain or shortness of breath prior to passing out today. He does report feeling some numbness of his right upper extremity around the time that he passed out. He also reports having diarrhea this morning. The patient reports that his PCP was thinking about sending him to see Neurology for his frequent episodes of passing out. The patient was evaluated emergency room this evening and routine labs have been unremarkable. urinalysis and urine drug screen were negative. CT brain was performed which was also unremarkable. We were asked to admit the patient to the hospital overnight for observation as his mother was not willing to take him home from the emergency room today as she was worried that something series could be happening to the patient. On my encounter with the patient allen he is asymptomatic and has no complaints. He denies any fevers, chills, neck stiffness, chest pain, shortness of breath, cough, nausea, vomiting, abdominal pain, dysuria, hematuria, rectal bleeding, lower extremity swelling, double vision,facial droop, or LE redness. No other complaints. Review of Systems Review of Systems: All systems reviewed & are unremarkable except as noted in HPI and below PMFSH Past Medical History Medical History ADHD Anxiety Bipolar 1 disorder Surgical History Surgical History H/O inguinal hernia repair Family History Family History Mother Patient's mother is in good health Father Patient's father is in good health Social History Social History Smoking status: Never smoker Second hand tobacco smoke exposure: No Alcohol intake: never Substance use: never Gender identity (if verbalized by the patient): Male Sexual Orientation (if Verbalized by the Patient): Straight or Heterosexual Spiritual care concerns: No Meds Home Medications and Allergies Home Medications Medication Instructions Recorded Confirmed Type benztropine 1 mg PO BID 07/28/20 07/28/20 History folic acid 1 mg PO DAILY 07/28/20 07/28/20 History hydroxyzine HCl 1 mg PO BID 07/28/20 07/28/20 History lithium carbonate 1 mg PO BID 07/28/20 08/05/20 History olanzapine 1 mg PO TID 07/28/20 07/28/20 History benztropine 2 mg PO BID 08/05/20 08/05/20 History guanfacine 2 mg PO BID 08/05/20 08/05/20 History Allergies Allergy/AdvReac Type Severity Reaction Status Date / Time levothyroxine sodium Allergy Intermediate Depression Verified 08/05/20 20:50 gluten Allergy Unknown Vomiting Verified 08/05/20 20:50 ibuprofen Allergy Unknown Unknown Verified 08/05/20 20:50 lamotrigine Allergy Unknown Unknown Verified 08/05/20 20:50 Vital Signs Vital Signs - 24 hr 08/05/20 16:40
[2020-08-05 22:35] VITALS: BP 128/88; PULSE 70; RESP 20; TEMP 37.2; O2SAT 99; BMI 21.8
[2020-08-05 22:46] VITALS: BMI 21.9
--- NOTE | 2020-08-05 22:53 | ADMGEN ---
This patient, Angel James, was admitted to 3 [facility] Surg Room 322-01. Patient/family oriented to hospital policies and general routines including ID bracelet, bed and alarms, visiting hours, pain management, procedures, bathroom and other care routines, personal items, smoking policy, room service/diet, and visiting hours. Information on how to activate the Rapid Response Team has been discussed. Patient/Family are encouraged to report perceived risks to care and to ask questions if they do not understand what they are told or what they should do.
[2020-08-06] VITALS (11 sets, daily range): BP systolic 104–142; BP diastolic 66–94; PULSE 54–106; RESP 20; TEMP 36.2–36.6; O2SAT 98–99
[2020-08-06 00:12] LABS: Lithium 0.2 mmol/L (0.6-1.2)
[2020-08-06] MEDS: SODIUM CHLORIDE 0.9% IV 1,000 ML 125 ML IV CONT ×3 (00:49→22:21)
[2020-08-06 05:56] LABS: Basophils Absolute Auto 0.1 K/mm3 (0.0-0.1); Basophils Percent Auto 0.8 % (0.2-1.2); Eosinophils Absolute Auto 0.1 K/mm3 (0-0.3); Eosinophils Percent Auto 1.2 % (0-4.4); Hematocrit 41.7 % (42.0-52.0); Hemoglobin 14.1 g/dL (14.0-18.0); Immature Granulocyte Absolute 0.03 K/mm3 (0.00-0.031); Immature Granulocyte Percent A 0.3 % (0-0.5); Lymphocytes Absolute Auto 1.77 K/mm3 (0.9-3.2); Lymphocytes Percent Auto 18.1 % (18.3-44.2); Mean Corpuscular HGB Conc 33.8 g/dl (32-36); Mean Corpuscular Hemoglobin 28.8 pg (26-34); Mean Corpuscular Volume 85.1 fl (80-100); Mean Platelet Volume 9.2 fl (7.4-10.4); Neutrophils Absolute Auto 6.8 K/mm3 (1.3-6.7); Neutrophils Percent Auto 69.6 % (45.5-73.1); Platelet Count Result 251 k/mm3 (150-375); Red Cell Distribution Width 12.1 % (11.5-14.5); White Blood Count 9.8 K/mm3 (4.5-10.0)
[2020-08-06 06:15] LABS: Anion Gap 6 mmol/L (8-16); Blood Urea Nitrogen 10 mg/dL (9-20); Calcium 9.2 mg/dL (8.4-10.2); Carbon Dioxide 27 mmol/L (22-30); Chloride 109 mmol/L (98-107); Estimated CRCL calculation 125 ml/min; Estimated Glomerular Filt Rate > 60; Glucose 94 mg/dL (75-110); Potassium 4.1 mmol/L (3.4-5.0); Sodium 142 mmol/L (137-145)
--- NOTE | 2020-08-06 09:22 | PC.NURSE ---
Pt mom and dad (both on speaker) called for medications and consents (due to pt not recalling health history). They state that prior to his syncopal episode he was standing in line at [employer] when he started shaking. He called his mom who picked him up. While in the car, the pt complained of his right arm throbbing. A short while later, she noticed that he passed out . Mom states when he has these passing out episodes, he always complaining of shaking, right arm throbbing, and then passing out . Pt was known to be consuming numerous [employer] drinks in recent past and then he had been encouraged to stop. At some point, one of his doctors had mentioned to mom hypoglycemia possibilities.
[2020-08-06] MEDS: BENZTROPINE MESYLATE 1 MG TABLET 2 MG PO ×2 (10:30→21:00)
[2020-08-06] MEDS: hydrOXYzine HCL 25 MG TABLET PO ×2 (10:30→18:00)
[2020-08-06] MEDS: guanFACINE HCL 1 MG TABLET 2 MG PO ×2 (10:30→18:00)
[2020-08-06] MEDS: LITHIUM CARBONATE 150 MG CAPSULE PO ×2 (10:30→18:00)
[2020-08-06] MEDS: CHOLECALCIFEROL 400 UNITS TABLET (VIT D) PO (10:31)
[2020-08-06] MEDS: FOLIC ACID 1 MG TABLET PO (10:31)
[2020-08-06 11:22] LABS: Free T4 Free Thyroxine Reflex 1.14 ng/dL (0.78-2.19)
[2020-08-06 12:29] LABS: Total Triiodothyronine (T3) 1.65 NG/ML (0.97-1.69)
--- NOTE | 2020-08-06 13:27 | WPDNEUROLOGY ---
Neurology EEG Report General Information Date of Study: 08/06/20 TEST eeg DIAGNOSIS Recurrent syncopal episodes CONDITION OF RECORDING awake and drowsy EEG NUMBER [id number] CLINICAL HISTORY patient got dizzy day before and loss consciousness twice in addition gives the history of recurrent syncopal episodes. EEG DESCRIPTION Basic resting occipital frequency consists of low to medium voltage 8 to 9 hertz per 2nd alpha admixed with low-voltage 15 to 18 hertz per 2nd beta. During drowsiness low-voltage beta activity seen diffusely admixed with waxing and waning posterior alpha rhythm. Multiple movements artifacts are seen throughout the tracing including the eye fluttering. hyperventilation not done. Non paroxysmal. Nonfocal. Nonlateralizing. IMPRESSION No significant abnormalities noted
--- NOTE | 2020-08-06 13:43 | PM.IMPN ---
Progress Note: A&P Assessment and Plan (1) Syncope and collapse: Code(s): R55 - Syncope and collapse Status: Acute Assessment and Plan: Multiple syncopal episodes patient reports preceding symptoms include lightheadedness, dizziness, feeling shaky, then passes out. Sometimes with right arm numbness and tingling. Etiology unclear. Differential includes orthostatic hypotension, cardiogenic, intracranial pathology, psychiatric illness. Orthostatic vital signs show no orthostasis. CTA head/neck unremarkable with no evidence of aneurysm or other intracranial abnormality. Echocardiogram within normal limits without evidence of ASD/VSD/PFO. EEG without evidence of abnormal wave/seizure activity. Neurology consultation appreciated. Continue cardiac monitoring with telemetry. Monitor blood sugar with accu-cheks. Ambulate with assistance. Continue supportive care with antiemetics, bland diet. Can try meclizine. Lengthy discussion with patient and his father at the bedside regarding results thus far and further plan of care. Recommend following up with his psychiatrist, counselor, may benefit from PCP arranging longer cardiac monitoring with Holter. (2) Bipolar 1 disorder: Code(s): F31.9 - Bipolar disorder, unspecified Status: Chronic Assessment and Plan: Continue home medications. Care coordination spent awhile arranging an appointment with a counselor for the patient early next week however he declines saying he has to go to work. Will continue to encourage further evaluation by his psychiatrist and establish with a counselor/talk therapist. He has had several counselors in the past but his most recent barrier to counseling is cost. Subjective Date/time seen: 08/06/20 13:30 Interval history: Mr. James is a 29yo M with history of bipolar disorder who presented to the ED for evaluation of recurrent syncopal episodes. He describes that he was standing in line at a restaurant yesterday when he began to feel lightheaded, dizzy, shaky, then passed out. He woke up to people surrounding him, his mother was called who came to pick him up then he passed out again in the car. He reports this has been happening to him intermittently for quite some time (passing out 2-4 times per week) but it is worsened lately. He has dizziness with standing and moving and vomited once earlier. He is distressed and concerned for going home because he is worried to put too much stress on his mother to care for him. He denies chest pain or shortness of breath. Review of Systems Review of Systems: All systems reviewed & are unremarkable except as noted in HPI and below Exam Narrative: Exam Narrative: General: Male resting sitting up in bed, tearful at times discussing care plan. HEENT: Normocephalic, EOMI, oral mucosa moist. Cardiovascular: Rate and rhythm are regular. Respiratory: Lungs clear to auscultation bilaterally. Respirations even and non-labored. Tolerating room air. Abdomen: Soft, non-tender, non-distended, bowel sounds present. Extremities: Peripheral pulses intact. No edema. Neuro: Alert and oriented. No focal neurological deficits. Speech is clear. Psych: Distressed but cooperative. Tangential speech. Objective Data Vital Signs Vital Signs: Last Vital Signs Temp 97.2 F L 08/06/20 14:00 Pulse 54 L 08/06/20 16:00 Resp 20 08/06/20 14:00 BP 142/92 H 08/06/20 14:00 Pulse Ox 99 08/06/20 14:00 Intake/Output Intake/Output: Intake & Output 08/03/20 08/04/20 08/05/20 08/06/20 23:59 23:59 23:59 23:59 Intake Total 1150 Output Total 900 Balance 250 Meds/Results Medications: Active Medications Generic Name Dose Route Start Last Admin Trade Name Freq PRN Reason Stop Dose Admin Benztropine Mesylate 2 mg 08/06/20 09:00 08/06/20 10:30 Benztropine Mesylate 1 Mg Tablet PO 2 mg
--- NOTE | 2020-08-06 14:04 | WPDNEURCNPN ---
Assessment and Plan Assessment and plan (1) Syncope: Qualifiers: Syncope type: unspecified Qualified Code(s): R55 - Syncope and collapse Code(s): R55 - Syncope and collapse Status: Acute Additional Plan Bipolar disorder with multiple episodes of fainting EEG is normal treatment will be continued as such Consult date: 08/06/20 Time Seen: 14:00 HPI: Angel James is a 29 year old male has been admitted to the hospital with multiple episodes of passing out on the day of admission in addition patient carries the diagnosis of bipolar disorder for which he is on lithium and olanzapine he passes out at least 2 to 4 times a week at times he has diffuse headache and generalized weakness he called his mother getting and she suggested that he showed the face car before she drove him home he remember getting into the car and then passed out he did not even have time to close the front door before he passed out EMS were called to the scene he was out for at least 10 minutes patient's primary care physician was considering him referring to the Neurology for frequent episodes of 5 sitting out, patient has ongoing history of 1. ADHD 2. Anxiety 3. Bipolar 1 disorder 4. History of never smoker drinker or substance abuse , evaluation up until now on documented the normal CBC, normal BMP, normal UA negative toxicology screen with lithium level of only 0.2, negative CTA of the brain and neck particularly with no evidence of intracranial aneurysm, and negative head CT scan with no evidence of bleed and negative cervical spine CT scan Review of Systems Review of Systems: All systems reviewed & are unremarkable except as noted in HPI and below PMFSH Past Medical History Medical History ADHD Anxiety Bipolar 1 disorder Surgical History Surgical History H/O inguinal hernia repair Family History Family History Mother Patient's mother is in good health Father Patient's father is in good health Social History Social History Smoking status: Never smoker Second hand tobacco smoke exposure: No Alcohol intake: never Substance use: never Gender identity (if verbalized by the patient): Male Sexual Orientation (if Verbalized by the Patient): Straight or Heterosexual Spiritual care concerns: No Meds Home Medications and Allergies Home Medications Medication Instructions Recorded Confirmed Type folic acid 1 mg PO DAILY 07/28/20 08/06/20 History hydroxyzine HCl 25 mg PO BID 07/28/20 08/06/20 History lithium carbonate 150 mg PO BID 07/28/20 08/06/20 History olanzapine 10 mg PO HS 07/28/20 08/06/20 History benztropine 2 mg PO BID 08/05/20 08/06/20 History guanfacine 2 mg PO BID 08/05/20 08/06/20 History cholecalciferol (vitamin D3) 10 mcg PO DAILY 08/06/20 08/06/20 History [Vitamin D3] multivit with min-folic acid 1 tablet PO DAILY 08/06/20 08/06/20 History [Adult One Daily Multivitamin] vitamin E 400 unit PO DAILY 08/06/20 08/06/20 History Allergies Allergy/AdvReac Type Severity Reaction Status Date / Time gluten Allergy Severe Vomiting Verified 08/06/20 08:36 levothyroxine sodium Allergy Intermediate Depression Verified 08/05/20 20:50 ibuprofen Allergy Unknown Unknown Verified 08/05/20 20:50 lamotrigine Allergy Unknown Unknown Verified 08/05/20 20:50 Vital Signs Vital Signs - 24 hr 08/05/20 16:40 08/05/20 20:54 08/05/20 22:35 Temperature 36.7 C 37.2 C Pulse Rate 76 70 70 Respiratory Rate 18 20 20 Blood Pressure 147/89 H 152/99 H 128/88 Pulse Oximetry 100 100 99 08/06/20 00:00 08/06/20 06:00 08/06/20 08:00 Temperature 36.6 C Pulse Rate 59 L 59 L 71 Respiratory Rate 20 Blood Pressure 120/86 Pulse Oximetry 99 08/06/20 11:00 Temperature Pulse Rate Respiratory Rate Blood
[2020-08-06] MEDS: ONDANSETRON INJ 4 MG/2 ML VIAL IV PUSH ×2 (14:13→20:56)
[2020-08-06 16:44] LABS: Glucose Point of Care 93 (65-105)
[2020-08-06] MEDS: MECLIZINE HCL 6.25 MG TABLET PO (18:36)
--- NOTE | 2020-08-06 21:59 | ECHO_ITS ---
Patient Info Name: Angel James Age: 29 years : 1990 Gender: Male Ht: 70 in Wt: 154 lbs BSA: 1.86 m2 HR: 62 bpm BP: 120 / 86 mmHg Technical Quality: Good Exam Date: 08/06/2020 1:54 PM Exam Location: [facility] Pulmonary Patient Status: Inpatient Admit Date: 08/05/2020 Staff Ordering Physician: Williams Nagy MD [employer] Border Officer: Roya Umana RDCS Attending Provider: Wendy Walls PA-C Referring Physician: Lilo MATUTE; Exam Type: CA echo doppler w bubble study Study Info Indications R55 - Syncope and collapse Contrast/Agitated Saline Contrast/Ag. Saline: Agitated Saline Amount: 30.00 ml Administered By: Petra Bryson RN Existing IV Access: Yes IV Access Condition: patent with no signs of infiltration Summary 1. Left ventricular chamber dimension is normal. 2. Left ventricular systolic function is normal, estimated at 60-65%. 3. The left ventricular diastolic function is normal. 4. E/e' 5 is not elevated. 5. There is trace pulmonic regurgitation. Left Ventricle E/e' 5 is not elevated. Left ventricular chamber dimension is normal. Left ventricular systolic function is normal, estimated at 60-65%. The left ventricular diastolic function is normal. Right Ventricle Right ventricular chamber dimension is normal. Right ventricular systolic function is normal. Left Atria Left atrial chamber dimension is normal. Right Atria Right atrial chamber dimension is normal. Atrial Septum Agitated saline injection with and without valsalva maneuver opacified right sided cardiac chambers without shunt to left sided cardiac chambers. Intact interatrial septum visualized by agitated saline imaging. Aortic Valve The aortic valve is trileaflet. There is no aortic valve stenosis. There is no aortic valve regurgitation. Pulmonic Valve There is trace pulmonic regurgitation. Mitral Valve There is no mitral valve stenosis. There is no mitral valve regurgitation. Tricuspid Valve There is no tricuspid valve regurgitation. Pericardium/Pleural There is no pericardial effusion. Inferior Vena Cava Normal inferior vena cava with >50% collapse upon inspiration consistent with normal right atrial pressure, 5 mmHg. Aorta The aortic root size at the sinus of Valsalva is normal. Left Ventricular Outflow Tract Name Value Normal LVOT 2D LVOT Diameter 2.0 cm LVOT Doppler LVOT Peak Gradient 4 mmHg LVOT Mean Gradient 2 mmHg LVOT VTI 19 cm LVOT VTI/AV VTI Ratio 1.2 LVOT Stroke Volume 58 ml LVOT CO 3.8 l/min LVOT CI 2.0 l/min/m2 Pulmonic Valve Name Value Normal RVOT Doppler
[2020-08-06] MEDS: METOCLOPRAMIDE HCL INJ 10 MG/2 ML VIAL IV PUSH (22:17)
[2020-08-07] VITALS (7 sets, daily range): BP systolic 105–132; BP diastolic 58–83; PULSE 51–71; RESP 18; TEMP 36.4–36.7; O2SAT 98–100
[2020-08-07 05:57] LABS: Hematocrit 39.6 % (42.0-52.0); Hemoglobin 13.5 g/dL (14.0-18.0); Mean Corpuscular HGB Conc 34.1 g/dl (32-36); Mean Corpuscular Hemoglobin 28.8 pg (26-34); Mean Corpuscular Volume 84.4 fl (80-100); Mean Platelet Volume 9.3 fl (7.4-10.4); Platelet Count Result 245 k/mm3 (150-375); Red Blood Count 4.69 M/mm3 (4.6-6.20); Red Cell Distribution Width 11.9 % (11.5-14.5); White Blood Count 10.1 K/mm3 (4.5-10.0)
[2020-08-07 06:16] LABS: Hemoglobin A1C 4.8 % (<5.7)
[2020-08-07 06:19] LABS: Anion Gap 5 mmol/L (8-16); Blood Urea Nitrogen 13 mg/dL (9-20); Calcium 8.7 mg/dL (8.4-10.2); Carbon Dioxide 28 mmol/L (22-30); Chloride 109 mmol/L (98-107); Estimated CRCL calculation 125 ml/min; Estimated Glomerular Filt Rate > 60; Glucose 106 mg/dL (75-110); Magnesium 2.1 mg/dL (1.6-2.3); Sodium 142 mmol/L (137-145)
[2020-08-07 07:30] LABS: Glucose Point of Care 95 (65-105)
[2020-08-07] MEDS: BENZTROPINE MESYLATE 1 MG TABLET 2 MG PO (08:57)
[2020-08-07] MEDS: hydrOXYzine HCL 25 MG TABLET PO (08:58)
[2020-08-07] MEDS: guanFACINE HCL 1 MG TABLET 2 MG PO (08:58)
[2020-08-07] MEDS: FOLIC ACID 1 MG TABLET PO (08:58)
[2020-08-07] MEDS: LITHIUM CARBONATE 150 MG CAPSULE PO (08:58)
[2020-08-07] MEDS: CHOLECALCIFEROL 400 UNITS TABLET (VIT D) PO (08:58)
--- NOTE | 2020-08-07 10:19 | PM.DS ---
DS: Admitting Diagnosis Admitting Diagnosis Admitting Diagnosis: Syncope DS: Discharge Diagnosis Discharge Diagnosis (1) Syncope and collapse: Code(s): R55 - Syncope and collapse Status: Acute Assessment and Plan: Date of Admission 08/05/20 Date of Discharge 08/07/20 Mr. James is a 29yo M with bipolar disorder on lithium and olanzapine presented to the ED for evaluation multiple syncopal episodes. This has been happening to him intermittently over the last several months, past twice yesterday. He describes episodes of feeling lightheaded, dizzy, then passes out. He describes he also has intermittent right arm numbness, tingling before he passes out. He is admitted in the setting for further workup. Orthostatic vital signs were checked and normal. CTA head and neck showed no evidence of intracranial abnormality, aneurysm or other etiology for his symptoms. Echocardiogram is detailed below unremarkable without evidence of ASD/VSD/PFO. EEG evidence of abnormal waves seizure activity. Blood sugars and vital signs are within normal limits. He was evaluated by Neurology, Dr. Briggs. Ultimately, workup was grossly unremarkable and it was felt that his equal episodes may be related to his bipolar disorder and anxiety. He does admit the symptoms are brought on by increased stress that he feels he has trouble managing. Case Management has help arrange further resources for him and he has reached out to his previous counselor in reestablished care with her. He will follow-up with his established psychiatrist. He is feeling well today and is hemodynamically stable for discharge on 08/07/2020. Detailed discussion held with patient as well as his mother at the bedside regarding his workup and they are comfortable with plan for discharge today. (2) Bipolar 1 disorder: Code(s): F31.9 - Bipolar disorder, unspecified Status: Chronic Assessment and Plan: Continue home medications. Follow-up with his counselor and psychiatrist. DS: Summary Hospital Course Hospital Course: See above. Time Spent with Patient Time attestation: Total time spent providing and/or coordinating discharge services: 45 minutes Exam Narrative: Exam Narrative: General: Male resting sitting up in bed in no acute distress, overall in good spirits. HEENT: Normocephalic, EOMI, oral mucosa moist. Cardiovascular: Rate and rhythm are regular. Respiratory: Lungs clear to auscultation bilaterally. Respirations even and non-labored. Tolerating room air. Abdomen: Soft, non-tender, non-distended, bowel sounds present. Extremities: Peripheral pulses intact. No edema. Neuro: Alert and oriented. No focal neurological deficits. Speech is clear. Psych: Distressed but cooperative. Tangential speech. DS: Data Data Completed and Pending Labs on day of discharge: Last Vital Signs Temp 98.1 F 08/07/20 08:00 Pulse 69 08/07/20 08:48 Resp 18 08/07/20 08:48 BP 132/75 08/07/20 08:48 Pulse Ox 100 08/07/20 09:[address] 08/05/20 20:03 IMPRESSION: 1. No acute intracranial abnormality. Head/Neck CTA 08/06/20 10:01 IMPRESSION: 1. Normal brain. No aneurysm or significant intracranial arterial stenosis. 2. Normal neck arteries. Laboratory Tests 08/07/20 05:43 08/07/20 05:43 Discharge Plan Discharge Attending physician on discharge: Derrick Arias Consulting providers: Bryan Hughes ; Ezequiel Briggs Discharging Clinician: Wendy Walls Anticipated Discharge Date/Time: 08/07/20 10:20 Patient Disposition: Home, Self-Care Activity: as tolerated Diet: as tolerated Discharge Instructions: Call to schedule a hospital follow up appointment with your primary care provider in 1 to 2 weeks. Please also continue to follow up with your psychiatrist as well as your counselor regul
== END 2020-08-07 11:20 | disposition home or self-care (01) ==
LOC: ANHED 19:37 → ANH3MEDSUR 22:13
PROVIDERS: Emergency Medicine; Physician Assistant; Admitting Provider Family Medicine; Emergency Provider Emergency Medicine; PCP Physician Assistant; Visit Provider Internal Medicine
DX: R55 Syncope and collapse (principal); F90.9 Attention-deficit hyperactivity disorder, unspecified type; F41.9 Anxiety disorder, unspecified; F31.9 Bipolar disorder, unspecified; Z79.899 Other long term (current) drug therapy
CPT/HCPCS: 36415; 70450; 70496; 70498; 80048; 80178; 80307; 81003; 82948; 83036; 83735; 84439; 84443; 84480; 85025; 85027; 93005; 93306; 95816; 96361; 96374; 96375; 99285; A9270; G0378; J2405; J2765; J7030; Q9967

== ENCOUNTER 2020-09-21 21:40 | Emergency (ER) | payer BC, SELFPAY ==
[2020-09-21 21:51] VITALS: BP 141/84; PULSE 82; RESP 18; TEMP 36.6; O2SAT 100
--- NOTE | 2020-09-21 22:12 | ED.PSYCH ---
HPI - Psych General Chief Complaint: Psychiatric Symptoms Stated Complaint: anxiety, held knife to neck at work Time Seen by Provider: 09/21/20 21:51 Source: patient Mode of arrival: ambulatory Limitations: no limitations History of Present Illness HPI Narrative: This is a 29 year old male with history of bipolar1 who presents from work for psychiatric evaluation. Patient was brought into hospital with a police manager. The officer was dispatched to [facility] for reports that patient was hold a knife to his throat threatening to kill himself. Officer and staff were able to de escalate patient on scene. Patient admitted that he had large knife to his neck and throat and threatened to kill himself. Patient states he does not want to kill himself but this was a cry for help. He states over the past months he has been increasing overwhelmed. He states he does not know to talk about his feeling sometimes. He became overwhelmed at work tonight and that is what make his make this threat. 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 He has been taking his medications and he is seeing a counselor. He has another appointment with his counselor in 4 weeks. Related Data Home Medications Medication Instructions Recorded Confirmed folic acid 1 mg PO DAILY 07/28/20 08/06/20 hydroxyzine HCl 25 mg PO BID 07/28/20 08/06/20 lithium carbonate 150 mg PO BID 07/28/20 08/06/20 olanzapine 10 mg PO HS 07/28/20 08/06/20 benztropine 2 mg PO BID 08/05/20 08/06/20 guanfacine 2 mg PO BID 08/05/20 08/06/20 Adult One Daily Multivitamin 1 tablet PO DAILY 08/06/20 08/06/20 cholecalciferol (vitamin D3) 10 mcg PO DAILY 08/06/20 08/06/20 [Vitamin D3] vitamin E 400 unit PO DAILY 08/06/20 08/06/20 buspirone 5 mg TID 09/21/20 09/21/20 Allergies Allergy/AdvReac Type Severity Reaction Status Date / Time gluten Allergy Severe Vomiting Verified 09/21/20 23:08 levothyroxine sodium Allergy Intermediate Depression Verified 09/21/20 23:08 ibuprofen Allergy Unknown Unknown Verified 09/21/20 23:08 lamotrigine Allergy Unknown Unknown Verified 09/21/20 23:08 Review of Systems Review of Systems: All systems reviewed & are unremarkable except as noted in HPI and below PMFSH Past Medical History Medical History ADHD Anxiety Bipolar 1 disorder Surgical History Surgical History H/O inguinal hernia repair Family History Family History Mother Patient's mother is in good health Father Patient's father is in good health Social History Social History Smoking status: Never smoker Second hand tobacco smoke exposure: No Alcohol intake: never Substance use: never Substance use type: does not use Gender identity (if verbalized by the patient): Male Spiritual care concerns: No Exam Const: General: no acute distress and alert Orientation/consciousness: patient oriented x3 Eyes: EOM: EOMs intact bilaterally Chest: Chest palpation & inspection: normal inspection of the chest Resp: Effort & Inspection: normal respiratory effort and no retractions Auscultation: clear to auscultation bilaterally Cardio: Rate: regular rate Rhythm: regular rhythm Heart sounds: no murmurs GI: GI Palp: Yes Soft to palpation, No Tenderness to palpation present (GI) and No Guarding due to palpation present (GI) Auscultation: normal bowel sounds Skin: General skin exam: normal color Rashes: no rashes Neuro: General: patient oriented x3, moves all extremities and CN's II-XI intact bilaterally Psych: Appearance: grossly normal Course Reevaluation(s) Reevaluation #1: PAtient has been medically cleared for psych placement. His labs are unremarkable. Salma from Crisis has come to evaluate patient
[2020-09-21 22:25] LABS: Basophils Absolute Auto 0.1 K/mm3 (0.0-0.1); Basophils Percent Auto 0.8 % (0.2-1.2); Eosinophils Absolute Auto 0.1 K/mm3 (0-0.3); Eosinophils Percent Auto 0.8 % (0-4.4); Hematocrit 41.6 % (42.0-52.0); Hemoglobin 14.1 g/dL (14.0-18.0); Immature Granulocyte Absolute 0.05 K/mm3 (0.00-0.031); Immature Granulocyte Percent A 0.5 % (0-0.5); Lymphocytes Absolute Auto 1.15 K/mm3 (0.9-3.2); Mean Corpuscular HGB Conc 33.9 g/dl (32-36); Mean Corpuscular Volume 85.6 fl (80-100); Mean Platelet Volume 9.1 fl (7.4-10.4); Monocytes Absolute Auto 0.9 K/mm3 (0.1-0.6); Monocytes Percent Auto 8.5 % (2.6-8.5); Neutrophils Absolute Auto 8.2 K/mm3 (1.3-6.7); Neutrophils Percent Auto 78.4 % (45.5-73.1); Platelet Count Result 235 k/mm3 (150-375); Red Blood Count 4.86 M/mm3 (4.6-6.20); Red Cell Distribution Width 12.3 % (11.5-14.5); White Blood Count 10.4 K/mm3 (4.5-10.0)
[2020-09-21 22:35] LABS: Ethanol < 10 mg/dL (<10)
[2020-09-21 22:39] LABS: Add Urine Microscopic? NO; Appearance Urine Clear (Clear); Bilirubin Urine Negative (Negative); Blood Urine Negative (Negative); Color Urine Straw (Yellow); Glucose Urine UA Negative (Negative); Ketones Urine Negative (Negative); Leukocyte Esterase Ur Negative LEU/UL (Negative); Nitrate Urine Negative (Negative); Protein Urine Negative (Negative); Specific Grav Ur 1.009 (1.001-1.035); Urobilinogen Urine Negative mg/dL (<2.0)
[2020-09-21 22:44] LABS: Alanine Aminotransferase 21 U/L (4-50); Albumin Level 4.6 g/dL (3.5-5.1); Alkaline Phosphatase 59 U/L (38-126); Anion Gap 15 mmol/L (8-16); Aspartate Amino Transferase 30 U/L (17-59); Bilirubin,Total 0.2 mg/dL (0.2-1.3); Blood Urea Nitrogen 12 mg/dL (9-20); Calcium 9.4 mg/dL (8.4-10.2); Carbon Dioxide 21 mmol/L (22-30); Chloride 105 mmol/L (98-107); Estimated CRCL calculation 114 ml/min; Estimated Glomerular Filt Rate > 60; Glucose 174 mg/dL (75-110); Potassium 3.4 mmol/L (3.4-5.0); Sodium 141 mmol/L (137-145)
[2020-09-21 22:55] LABS: Amphetamine Screen Urine Negative (Negative); Barbiturate Screen Urine Negative (Negative); Benzodiazepines Screen Urine Negative (Negative); Cannabinoid Screen Urine Negative (Negative); Cocaine Screen Urine Negative (Negative); Methadone Screen Urine Negative (Negative); Opiate Screen Urine Negative (Negative); Phencyclidine Screen Urine Negative (Negative)
[2020-09-21 23:17] LABS: Lithium < 0.2 mmol/L (0.6-1.2)
--- NOTE | 2020-09-21 23:26 | PC.NURSE ---
Mother is here and reports that pt has had a couple episodes over the past 2 months, at home, where he has taken a knife and threatened to kill himself. Mother has brought pt's night time medications and Dr. Panchal gives the Okay for pt to take his medications and vit. Pt has a sensitivity to Gluten and mom has brought food that pt can tolerate.
--- NOTE | 2020-09-22 02:46 | ECG_ITS ---
Measurements Intervals [place] Rate: 52 P: 61 ME: 156 QRS: 85 QRSD: 89 T: 40 QT: 405 QTc: 378 Interpretive Statements SINUS BRADYCARDIA INCOMPLETE RIGHT BUNDLE BRANCH BLOCK MINIMAL Q WAVES- INF/LAT LEADS BORDERLINE ECG Electronically Signed On 09-22-2020 6:39:36 CDT by Javier Beckwith D.O.
[2020-09-22 02:55] VITALS: BP 129/76; PULSE 72; RESP 16; O2SAT 98
[2020-09-22 02:55] LABS: EDCOVIDSCREEN Negative (Negative)
--- NOTE | 2020-09-22 06:17 | PC.NURSE ---
called [facility] to request transport. ETA 35 -45 minutes
--- NOTE | 2020-09-22 07:02 | PC.NURSE ---
[facility] here.
[2020-09-22 07:17] VITALS: BP 138/72; PULSE 62; RESP 16; O2SAT 99
== END 2020-09-22 07:18 ==
PROVIDERS: Emergency Provider General Practice; PCP Physician Assistant
DX: Z20.822 Contact with and (suspected) exposure to COVID-19 (principal); F31.9 Bipolar disorder, unspecified; R00.1 Bradycardia, unspecified; F90.9 Attention-deficit hyperactivity disorder, unspecified type; F41.9 Anxiety disorder, unspecified
CPT/HCPCS: 36415; 80053; 80178; 80307; 81003; 84443; 85025; 87426; 93005; 99285; C9803

== ENCOUNTER 2020-09-26 15:13 | Emergency (ER) | payer BC, SELFPAY ==
[2020-09-26 15:30] VITALS: BP 143/98; PULSE 96; RESP 20; TEMP 36.4; O2SAT 100
--- NOTE | 2020-09-26 15:46 | ED.NAVMDI ---
HPI - Nausea/Vomiting/Diarrhea General Chief complaint: Nausea/Vomiting/Diarrhea Stated complaint: vomiting Time Seen by Provider: 09/26/20 15:46 History of Present Illness HPI Narrative: Nausea and vomiting for the past 3 days. Associated with epigastric pain. He has had similar symptoms in the past due to gluten intolerance. He reports that he did eat some noodles the day before that may have contained gluten. He also had a recent adjustment of his psychiatric medications. He has not tried anything for his symptoms. Related Data Home Medications Medication Instructions Recorded Confirmed folic acid 1 mg PO DAILY 07/28/20 08/06/20 hydroxyzine HCl 25 mg PO BID 07/28/20 08/06/20 lithium carbonate 150 mg PO BID 07/28/20 08/06/20 olanzapine 10 mg PO HS 07/28/20 08/06/20 benztropine 2 mg PO BID 08/05/20 08/06/20 guanfacine 2 mg PO BID 08/05/20 08/06/20 Adult One Daily Multivitamin 1 tablet PO DAILY 08/06/20 08/06/20 cholecalciferol (vitamin D3) 10 mcg PO DAILY 08/06/20 08/06/20 [Vitamin D3] vitamin E 400 unit PO DAILY 08/06/20 08/06/20 buspirone 5 mg TID 09/21/20 09/21/20 Allergies Allergy/AdvReac Type Severity Reaction Status Date / Time gluten Allergy Severe Vomiting Verified 09/26/20 15:33 levothyroxine sodium Allergy Intermediate Depression Verified 09/26/20 15:33 ibuprofen Allergy Unknown Unknown Verified 09/26/20 15:33 lamotrigine Allergy Unknown Unknown Verified 09/26/20 15:33 Review of Systems Review of Systems: All systems reviewed & are unremarkable except as noted in HPI and below Constitutional: Constitutional: Denies fever(s) ENT: Reports dizziness Cardiovascular: Cardiovascular: Denies chest pain Respiratory: Respiratory: Denies dyspnea Gastrointestinal: Gastrointestinal: Reports as per HPI Genitourinary: Genitourinary: Reports no additional male genitourinary complaints Psychiatric: Psychiatric: Denies homicidal ideation and Denies suicidal ideation [facility] Past Medical History Medical History ADHD Anxiety Bipolar 1 disorder Surgical History Surgical History H/O inguinal hernia repair Family History Family History Mother Patient's mother is in good health Father Patient's father is in good health Social History Social History Smoking status: Never smoker Second hand tobacco smoke exposure: No Alcohol intake: never Substance use: never Substance use type: does not use Gender identity (if verbalized by the patient): Male Spiritual care concerns: No Exam Const: General: healthy appearing, no acute distress and alert Orientation/consciousness: patient oriented x3 HENMT: Head: normal to inspection Mouth: Yes dry mucous membranes Resp: Effort & Inspection: normal respiratory effort Auscultation: clear to auscultation bilaterally Cardio: Rate: regular rate Rhythm: regular rhythm GI: GI Palp: Yes Soft to palpation, Yes Tenderness to palpation present (GI) (epigastric), No Guarding due to palpation present (GI) and No Rebound tenderness present Auscultation: normal bowel sounds Skin: General skin exam: normal color Neuro: General: patient oriented x3, moves all extremities and no focal motor deficits Speech: normal speech Extrem: General: normal to inspection Course Vital Signs Vital signs: Vital Signs Temperature 36.4 C 09/26/20 15:30 Pulse Rate 96 09/26/20 15:30 Respiratory Rate 20 09/26/20 15:30 Blood Pressure 143/98 H 09/26/20 15:30 Pulse Oximetry 100 09/26/20 15:30 Temperature 36.4 C 09/26/20 15:30 Pulse Rate 82 09/26/20 19:04 Respiratory Rate 16 09/26/20 19:04 Blood Pressure 136/74 09/26/20 19:04 Pulse Oximetry 99 09/26/20 19:04 MDM - Nausea/Vomiting/Diarrhea MDM Narrative Medic
[2020-09-26 16:23] LABS: Basophils Absolute Auto 0.1 K/mm3 (0.0-0.1); Basophils Percent Auto 0.8 % (0.2-1.2); Eosinophils Percent Auto 0.2 % (0-4.4); Hematocrit 43.6 % (42.0-52.0); Immature Granulocyte Absolute 0.03 K/mm3 (0.00-0.031); Immature Granulocyte Percent A 0.3 % (0-0.5); Lymphocytes Absolute Auto 1.45 K/mm3 (0.9-3.2); Lymphocytes Percent Auto 14.3 % (18.3-44.2); Mean Corpuscular HGB Conc 34.4 g/dl (32-36); Mean Corpuscular Hemoglobin 29.3 pg (26-34); Mean Corpuscular Volume 85.2 fl (80-100); Mean Platelet Volume 9.2 fl (7.4-10.4); Monocytes Absolute Auto 1.1 K/mm3 (0.1-0.6); Neutrophils Absolute Auto 7.5 K/mm3 (1.3-6.7); Neutrophils Percent Auto 73.4 % (45.5-73.1); Platelet Count Result 256 k/mm3 (150-375); Red Blood Count 5.12 M/mm3 (4.6-6.20); White Blood Count 10.2 K/mm3 (4.5-10.0)
[2020-09-26 16:33] LABS: Alanine Aminotransferase 17 U/L (4-50); Albumin Level 4.8 g/dL (3.5-5.1); Alkaline Phosphatase 59 U/L (38-126); Anion Gap 11 mmol/L (8-16); Aspartate Amino Transferase 25 U/L (17-59); Bilirubin,Total 0.6 mg/dL (0.2-1.3); Blood Urea Nitrogen 14 mg/dL (9-20); Calcium 9.6 mg/dL (8.4-10.2); Carbon Dioxide 31 mmol/L (22-30); Chloride 99 mmol/L (98-107); Estimated CRCL calculation 129 ml/min; Estimated Glomerular Filt Rate > 60; Glucose 107 mg/dL (75-110); Lipase 181 U/L (23-300); Potassium 3.4 mmol/L (3.4-5.0); Sodium 141 mmol/L (137-145)
[2020-09-26] MEDS: ONDANSETRON INJ 4 MG/2 ML VIAL IV PUSH (17:13)
[2020-09-26] MEDS: PANTOPRAZOLE SODIUM IV 40 MG VIAL IV PUSH (17:14)
[2020-09-26] MEDS: SODIUM CHLORIDE 0.9% IV 2,000 ML 999 ML IV CONT (17:14)
[2020-09-26 17:43] VITALS: BP 139/88; PULSE 84; RESP 16; O2SAT 98
[2020-09-26 18:16] LABS: Add Urine Microscopic? YES; Appearance Urine Cloudy (Clear); Bilirubin Urine Negative (Negative); Blood Urine Negative (Negative); Color Urine Yellow (Yellow); Glucose Urine UA Negative (Negative); Ketones Urine Trace mg/dL (Negative); Leukocyte Esterase Ur Negative LEU/UL (Negative); Mucus Urine Rare /lpf; Nitrate Urine Negative (Negative); Protein Urine Negative (Negative); RBC Urine 0-2 /hpf (0-2); Specific Grav Ur 1.009 (1.001-1.035); Urobilinogen Urine Negative mg/dL (<2.0); WBC Urine 0-3 /hpf
[2020-09-26 19:04] VITALS: BP 136/74; PULSE 82; RESP 16; O2SAT 99
== END 2020-09-26 19:18 | disposition home or self-care (01) ==
PROVIDERS: Emergency Provider Emergency Medicine; PCP Physician Assistant
DX: R11.2 Nausea with vomiting, unspecified (principal); F90.9 Attention-deficit hyperactivity disorder, unspecified type; F41.9 Anxiety disorder, unspecified; F31.9 Bipolar disorder, unspecified
CPT/HCPCS: 36415; 80053; 81001; 83690; 85025; 96374; 96375; 99284; C9113; J2405; J7030

== ENCOUNTER 2020-10-14 10:20 | Emergency (ER) | payer BC, SELFPAY ==
[2020-10-14] VITALS (10 sets, daily range): BP systolic 127–156; BP diastolic 91–109; PULSE 88–110; RESP 17–30; TEMP 36.4; O2SAT 97–99
[2020-10-14 10:55] LABS: Basophils Absolute Auto 0.1 K/mm3 (0.0-0.1); Basophils Percent Auto 0.6 % (0.2-1.2); Eosinophils Percent Auto 0.2 % (0-4.4); Hematocrit 42.8 % (42.0-52.0); Hemoglobin 14.4 g/dL (14.0-18.0); Immature Granulocyte Absolute 0.05 K/mm3 (0.00-0.031); Immature Granulocyte Percent A 0.4 % (0-0.5); Lymphocytes Percent Auto 11.9 % (18.3-44.2); Mean Corpuscular HGB Conc 33.6 g/dl (32-36); Mean Corpuscular Volume 86.1 fl (80-100); Mean Platelet Volume 9.4 fl (7.4-10.4); Monocytes Absolute Auto 1.3 K/mm3 (0.1-0.6); Neutrophils Absolute Auto 8.9 K/mm3 (1.3-6.7); Neutrophils Percent Auto 75.9 % (45.5-73.1); Platelet Count Result 317 k/mm3 (150-375); Red Blood Count 4.97 M/mm3 (4.6-6.20); Red Cell Distribution Width 12.6 % (11.5-14.5); White Blood Count 11.8 K/mm3 (4.5-10.0)
[2020-10-14 11:15] LABS: Albumin Level 4.7 g/dL (3.5-5.1); Alkaline Phosphatase 55 U/L (38-126); Anion Gap 10 mmol/L (8-16); Aspartate Amino Transferase 39 U/L (17-59); Bilirubin,Total 0.8 mg/dL (0.2-1.3); Blood Urea Nitrogen 15 mg/dL (9-20); Calcium 9.6 mg/dL (8.4-10.2); Carbon Dioxide 26 mmol/L (22-30); Chloride 106 mmol/L (98-107); Estimated CRCL calculation 105 ml/min; Estimated Glomerular Filt Rate > 60; Glucose 160 mg/dL (75-110); Potassium 3.2 mmol/L (3.4-5.0); Sodium 142 mmol/L (137-145)
[2020-10-14 11:22] LABS: Alanine Aminotransferase 29 U/L (4-50)
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
[2020-10-14] MEDS: POTASSIUM CHLORIDE 20 MEQ TABLET PO (12:44)
[2020-10-14 13:07] LABS: Magnesium 1.9 mg/dL (1.6-2.3)
--- NOTE | 2020-10-14 13:30 | PC.NURSE ---
Radames from Care coordination speaking with pt
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
--- NOTE | 2020-10-14 13:57 | PC.NURSE ---
Radames states that pt doesn't want any homeless jail resources or counseling
--- NOTE | 2020-10-14 14:13 | PC.NURSE ---
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 Angelica is requesting H&P. Pt signed an authorization for disclosure to have his chart sent with him to the snf.
== END 2020-10-14 14:32 | disposition home or self-care (01) ==
PROVIDERS: Physician Assistant Medical; Emergency Provider Emergency Medicine; PCP Physician Assistant
DX: S00.531A Contusion of lip, initial encounter (principal); S00.81XA Abrasion of other part of head, initial encounter; F90.9 Attention-deficit hyperactivity disorder, unspecified type; F41.9 Anxiety disorder, unspecified; F31.9 Bipolar disorder, unspecified; Y04.0XXA Assault by unarmed brawl or fight, initial encounter
CPT/HCPCS: 36415; 80053; 83735; 85025; 99283; A9270

== ENCOUNTER 2020-10-15 15:03 | Emergency (ER) | payer BC, SELFPAY ==
[2020-10-15 15:12] VITALS: BP 159/92; PULSE 96; RESP 20; TEMP 36.6; O2SAT 100
--- NOTE | 2020-10-15 16:26 | ED.MALEGU ---
HPI - Male Genitourinary General Chief complaint: Urogenital-Male Stated complaint: penile D/C Time Seen by Provider: 10/15/20 16:23 Source: patient Mode of arrival: ambulatory Limitations: no limitations History of Present Illness HPI Narrative: Patient is a 29-year-old male complaining of burning with urination accompanied by penile discharge started couple days ago. Denies any penile or testicular swelling. Denies fever or chills. MD Complaint: possible STD exposure Related Data Home Medications Medication Instructions Recorded Confirmed folic acid 1 mg PO DAILY 07/28/20 08/06/20 hydroxyzine HCl 25 mg PO BID 07/28/20 08/06/20 lithium carbonate 150 mg PO BID 07/28/20 08/06/20 olanzapine 10 mg PO HS 07/28/20 08/06/20 benztropine 2 mg PO BID 08/05/20 08/06/20 guanfacine 2 mg PO BID 08/05/20 08/06/20 Adult One Daily Multivitamin 1 tablet PO DAILY 08/06/20 08/06/20 cholecalciferol (vitamin D3) 10 mcg PO DAILY 08/06/20 08/06/20 [Vitamin D3] buspirone 5 mg TID 09/21/20 09/21/20 aripiprazole mg 10/15/20 10/15/20 sertraline mg 10/15/20 Allergies Allergy/AdvReac Type Severity Reaction Status Date / Time gluten Allergy Severe Vomiting Verified 10/15/20 16:37 levothyroxine sodium Allergy Intermediate Depression Verified 10/15/20 16:37 ibuprofen Allergy Unknown Unknown Verified 10/15/20 16:37 lamotrigine Allergy Unknown Unknown Verified 10/15/20 16:37 Review of Systems Review of Systems: All systems reviewed & are unremarkable except as noted in HPI and below Constitutional: Constitutional: Denies body ache(s), Denies chills, Denies excessive sweating, Denies fatigue, Denies fever(s), Denies headache(s), Denies lethargy, Denies malaise, Denies weakness and Denies weight loss Eyes: Eyes: Denies blurry vision, Denies change in vision and Denies loss of vision ENT: Denies dizziness, Denies ear discharge, Denies headache(s), Denies lip swelling, Denies epistaxis, Denies nasal congestion, Denies neck pain, Denies throat swelling and Denies tongue swelling Cardiovascular: Cardiovascular: Denies chest pain, Denies chest pain at rest, Denies chest pain with activity, Denies diaphoresis, Denies rapid heart rate, Denies edema, Denies irregular heart rhythm, Denies lightheadedness, Denies palpitations, Denies dyspnea and Denies dyspnea on exertion Respiratory: Respiratory: Denies chest congestion, Denies cough, Denies hemoptysis, Denies dyspnea and Denies dyspnea on exertion Gastrointestinal: Gastrointestinal: Denies abdominal pain, Denies melena, Denies hematochezia, Denies diarrhea, Denies nausea, Denies vomiting and Denies hematemesis Musculoskeletal: Musculoskeletal: Denies abnormal gait, Denies deformity, Denies joint swelling, Denies limited range of motion, Denies neck pain and Denies numbness Neurologic: Denies Abnormal speech present, Denies abnormal gait, Denies confusion, Denies dizziness, Denies headache(s), Denies focal weakness, Denies loss of vision, Denies numbness, Denies Other visual disturbances, Denies Sensory deficit (Neuro) and Denies weakness Psychiatric: Psychiatric: Denies confusion, Denies depression, Denies auditory hallucinations, Denies homicidal ideation and Denies suicidal ideation Endocrine: Endocrine: Denies cold intolerance, Denies excessive sweating, Denies fatigue, Denies heat intolerance and Denies palpitations Hematologic/Lymphatic: Hematologic/Lymphatic: Denies easy bleeding and Denies easy bruising Allergic/Immunologic: Allergic/Immunologic: Denies lip swelling, Denies throat swelling and Denies tongue swelling PMFSH Past Medical History Medical History ADHD Anxiety Bipolar 1 disorder Surgical History Surgical History H/O inguinal hernia repair Family History Family History Mother Patient's mother is in good health Father P
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
[2020-10-15 16:40] VITALS: BP 152/93; PULSE 116; RESP 18; TEMP 36.6; O2SAT 99
[2020-10-15 17:07] LABS: Add Urine Microscopic? YES; Appearance Urine Clear (Clear); Bacteria Urine Trace /hpf; Bilirubin Urine Negative (Negative); Blood Urine Negative (Negative); Color Urine Yellow (Yellow); Glucose Urine UA 1+ mg/dL (Negative); Ketones Urine Negative (Negative); Leukocyte Esterase Ur Negative LEU/UL (Negative); Mucus Urine Rare /lpf; Nitrate Urine Negative (Negative); Protein Urine Negative (Negative); RBC Urine 0-2 /hpf (0-2); Specific Grav Ur 1.015 (1.001-1.035); Squamous Epithelial Cell Urine Rare /hpf (Few); Urobilinogen Urine Negative mg/dL (<2.0); WBC Urine 0-3 /hpf
[2020-10-15 18:03] LABS: Basophils Absolute Auto 0.1 K/mm3 (0.0-0.1); Basophils Percent Auto 0.7 % (0.2-1.2); Eosinophils Percent Auto 0.4 % (0-4.4); Hematocrit 38.4 % (42.0-52.0); Hemoglobin 13.2 g/dL (14.0-18.0); Immature Granulocyte Absolute 0.05 K/mm3 (0.00-0.031); Immature Granulocyte Percent A 0.5 % (0-0.5); Lymphocytes Absolute Auto 1.42 K/mm3 (0.9-3.2); Lymphocytes Percent Auto 13.1 % (18.3-44.2); Mean Corpuscular HGB Conc 34.4 g/dl (32-36); Mean Corpuscular Hemoglobin 29.1 pg (26-34); Mean Corpuscular Volume 84.6 fl (80-100); Mean Platelet Volume 9.2 fl (7.4-10.4); Monocytes Absolute Auto 1.3 K/mm3 (0.1-0.6); Monocytes Percent Auto 11.7 % (2.6-8.5); Neutrophils Percent Auto 73.6 % (45.5-73.1); Platelet Count Result 291 k/mm3 (150-375); Red Blood Count 4.54 M/mm3 (4.6-6.20); Red Cell Distribution Width 12.3 % (11.5-14.5); White Blood Count 10.9 K/mm3 (4.5-10.0)
[2020-10-15 18:12] LABS: Anion Gap 11 mmol/L (8-16); Blood Urea Nitrogen 12 mg/dL (9-20); Calcium 9.6 mg/dL (8.4-10.2); Carbon Dioxide 26 mmol/L (22-30); Chloride 106 mmol/L (98-107); Estimated CRCL calculation 111 ml/min; Estimated Glomerular Filt Rate > 60; Glucose 107 mg/dL (75-110); Magnesium 2.1 mg/dL (1.6-2.3); Potassium 3.1 mmol/L (3.4-5.0); Sodium 143 mmol/L (137-145)
--- NOTE | 2020-10-15 18:23 | ED.GENADULT ---
HPI - General Adult General Chief complaint: Urogenital-Male Stated complaint: penile D/C Time Seen by Provider: 10/15/20 16:23 Source: patient, family, RN notes reviewed and old records reviewed Mode of arrival: ambulatory Limitations: no limitations History of Present Illness HPI narrative: Patient is a 29-year-old male who presents to emergency department for evaluation of concern for burning with urination and concern for uncontrolled ejaculation patient notes that this has been going on now for over a week patient has history of OCD and has frequently been to the emergency department with obsessive-compulsive type thoughts and concerns he is denying any suicidal or homicidal ideation at this time patient denies any dysuria or hematuria patient notes some suprapubic discomfort. Patient denies any sexual intercourse or masturbation Related Data Home Medications Medication Instructions Recorded Confirmed folic acid 1 mg PO DAILY 07/28/20 08/06/20 hydroxyzine HCl 25 mg PO BID 07/28/20 08/06/20 lithium carbonate 150 mg PO BID 07/28/20 08/06/20 olanzapine 10 mg PO HS 07/28/20 08/06/20 benztropine 2 mg PO BID 08/05/20 08/06/20 guanfacine 2 mg PO BID 08/05/20 08/06/20 Adult One Daily Multivitamin 1 tablet PO DAILY 08/06/20 08/06/20 cholecalciferol (vitamin D3) 10 mcg PO DAILY 08/06/20 08/06/20 [Vitamin D3] buspirone 5 mg TID 09/21/20 09/21/20 aripiprazole mg 10/15/20 10/15/20 sertraline mg 10/15/20 Allergies Allergy/AdvReac Type Severity Reaction Status Date / Time gluten Allergy Severe Vomiting Verified 10/15/20 16:37 levothyroxine sodium Allergy Intermediate Depression Verified 10/15/20 16:37 ibuprofen Allergy Unknown Unknown Verified 10/15/20 16:37 lamotrigine Allergy Unknown Unknown Verified 10/15/20 16:37 Review of Systems Review of Systems: All systems reviewed & are unremarkable except as noted in HPI and below PMFSH Past Medical History Medical History ADHD Anxiety Bipolar 1 disorder Surgical History Surgical History H/O inguinal hernia repair Family History Family History Mother Patient's mother is in good health Father Patient's father is in good health Social History Social History Smoking status: Never smoker Second hand tobacco smoke exposure: No Alcohol intake: never Substance use: never Substance use type: does not use Gender identity (if verbalized by the patient): Male Spiritual care concerns: No Exam Narrative: Exam Narrative: GENERAL: Well-appearing, well-nourished, and in no acute distress. HEAD: Normocephalic, atraumatic. EYES: PERRLA and EOMI. ENT: Nares clear, no rhinorrhea or epistaxis. Mucous membranes moist. CHEST: Clear to auscultation. No respiratory distress. No wheezes rales or rhonchi HEART: Regular rate and rhythm. No murmur heard. Normal peripheral pulses. ABDOMEN: Soft, nontender, nondistended EXTREMITIES: Normal range of motion. No edema. SKIN: Warm, dry, no rash. NEURO: No focal deficits. Alert and oriented x3. PSYCH: Normal mood and affect. Course Course Emergency Course: No concerning findings in the patient's evaluation today he will be referred back to primary care for further evaluation agreeing with this plan was reassured patient is without any discomfort or pain on exam felt appropriate for outpatient reevaluation given reasons to return he and his family feel comfortable with this Vital Signs Vital signs: Vital Signs Temperature 98 F 10/15/20 15:12 Pulse Rate 96 10/15/20 15:12 Respiratory Rate 20 10/15/20 15:12 Blood Pressure 159/92 H 10/15/20 15:12 Pulse Oximetry 100 10/15/20 15:12 Temperature 97.8 F 10/15/20 16:40 Pulse Rate 116 H 10/15/20 16:40 Respiratory Rate 18 10/15/20 16:40
[2020-10-15 19:00] VITALS: BP 153/99; PULSE 90; RESP 20; TEMP 36.4; O2SAT 100
== END 2020-10-15 19:04 | disposition home or self-care (01) ==
PROVIDERS: Emergency Medicine Emergency Medical Services; Emergency Provider Emergency Medicine; PCP Physician Assistant
DX: R30.0 Dysuria (principal); F42.9 Obsessive-compulsive disorder, unspecified; F90.9 Attention-deficit hyperactivity disorder, unspecified type; F31.9 Bipolar disorder, unspecified; F41.9 Anxiety disorder, unspecified
CPT/HCPCS: 36415; 80048; 81001; 83735; 85025; 87491; 87591; 99283

== ENCOUNTER 2020-11-06 17:22 | Emergency (ER) | payer BC, SELFPAY ==
[2020-11-06 17:30] VITALS: BP 141/101; PULSE 84; RESP 17; TEMP 36.8; O2SAT 98
--- NOTE | 2020-11-06 18:16 | ED.WOUNDLAC ---
HPI - Wound/Laceration General Chief Complaint: Wound/Laceration Stated Complaint: head lac, post fall Source: patient Mode of arrival: EMS Limitations: no limitations History of Present Illness HPI narrative: Patient is a 29 year old male who presents by EMS after slip and fall, hitting head on cabinet. Patient has laceration to posterior scalp. He denies LOC, denies headache at this time. Patient denies taking otc medication prior to arrival. Bleeding controlled to wound with dressing. Patient is unaware of last tetanus, believe over 10 years ago. Related Data Home Medications Medication Instructions Recorded Confirmed folic acid 1 mg PO DAILY 07/28/20 08/06/20 hydroxyzine HCl 25 mg PO BID 07/28/20 08/06/20 lithium carbonate 150 mg PO BID 07/28/20 08/06/20 olanzapine 10 mg PO HS 07/28/20 08/06/20 benztropine 2 mg PO BID 08/05/20 08/06/20 guanfacine 2 mg PO BID 08/05/20 08/06/20 Adult One Daily Multivitamin 1 tablet PO DAILY 08/06/20 08/06/20 cholecalciferol (vitamin D3) 10 mcg PO DAILY 08/06/20 08/06/20 [Vitamin D3] buspirone 5 mg TID 09/21/20 09/21/20 aripiprazole mg 10/15/20 10/15/20 sertraline mg 10/15/20 Allergies Allergy/AdvReac Type Severity Reaction Status Date / Time gluten Allergy Severe Vomiting Verified 11/06/20 17:34 levothyroxine sodium Allergy Intermediate Depression Verified 11/06/20 17:34 ibuprofen Allergy Unknown Unknown Verified 11/06/20 17:34 lamotrigine Allergy Unknown Unknown Verified 11/06/20 17:34 Review of Systems Review of Systems: Narrative: CONSTITUTIONAL: Denies fever, chills, or sweats. EYES: Denies visual changes, redness, or discharge. ENT: Denies rhinorrhea, congestion, sore throat, or otalgia. CARDIOVASCULAR: Denies chest pain, palpitations, or edema. RESPIRATORY: Denies cough or dyspnea. GASTROINTESTINAL: Denies abdominal pain, nausea, vomiting, or diarrhea. GENITOURINARY: Denies dysuria or hematuria. SKIN: Reports laceration to head MUSCULOSKELETAL: Denies back pain, joint pain, or myalgia. NEUROLOGIC: Denies headache, numbness, dizziness, or weakness. PSYCHIATRIC: Denies anxiety or depression. [facility] Past Medical History Medical History ADHD Anxiety Bipolar 1 disorder Surgical History Surgical History H/O inguinal hernia repair Family History Family History Mother Patient's mother is in good health Father Patient's father is in good health Social History Social History Smoking status: Never smoker Second hand tobacco smoke exposure: No Alcohol intake: never Substance use: never Substance use type: does not use Gender identity (if verbalized by the patient): Male Spiritual care concerns: No Comments At the time of signature, I have reviewed and agree with nursing past medical, surgical, social, and family history unless otherwise noted. Please see nursing chart for further information. There is no relevant family history pertinent to the presenting complaint. Exam Narrative: Exam Narrative: GENERAL: Well-appearing, well-nourished, and in no acute distress. HEAD: Normocephalic, atraumatic. EYES: EOMI. No redness or drainage. Conjunctiva are normal. PERRLA ENT: Mucous membranes pink and moist. CHEST: No respiratory distress. HEART: Regular rate and rhythm. MUSCULOSKELETAL: No bony tenderness. EXTREMITIES: Normal range of motion. No edema. SKIN: Approximate 3 cm laceration to posterior scalp. Bleeding controlled. NEURO: No focal deficits. Alert and oriented x3. Gait steady. PSYCH: Normal affect. No signs of depression or anxiety. Course Vital Signs Vital signs: Vital Signs Temperature 36.8 C 11/06/20 17:30 Pulse Rate 84 11/06/20 17:30 Respiratory Rate 17 11/06/20 17:30 Blood Pressure 141/101 H
[2020-11-06] MEDS: TETANUS,DIPHTHERIA,AC PERTUSSIS ADULT (0.5 ML) BOOSTRIX IM (19:09)
== END 2020-11-06 19:00 | disposition home or self-care (01) ==
PROVIDERS: Emergency Provider Nurse Practitioner; PCP Physician Assistant
DX: S01.01XA Laceration without foreign body of scalp, initial encounter (principal); Z23 Encounter for immunization; F90.9 Attention-deficit hyperactivity disorder, unspecified type; F31.9 Bipolar disorder, unspecified; F41.9 Anxiety disorder, unspecified; W01.190A Fall on same level from slipping, tripping and stumbling with subsequent striking against furniture, initial encounter
CPT/HCPCS: 12002; 90471; 90715; 99282

== ENCOUNTER 2020-11-07 22:29 | Emergency (ER) | payer BC, SELFPAY ==
[2020-11-07 22:35] VITALS: BP 145/94; PULSE 89; RESP 16; TEMP 37.2; O2SAT 99
--- NOTE | 2020-11-08 01:55 | ECG_ITS ---
Measurements Intervals [place] Rate: 73 P: 54 [place]: 144 QRS: 91 QRSD: 92 T: 39 QT: 358 QTc: 396 Interpretive Statements SINUS RHYTHM MINIMAL Q WAVES- ANTEROLAT/INF LEADS NONSPECIFIC ST ELEVATION IN ANTERIOR LEADS BASELINE WANDER- II, III BORDERLINE ECG Electronically Signed On 11-08-2020 6:41:12 CDT by Javier Beckwith D.O.
[2020-11-08 02:34] LABS: Basophils Absolute Auto 0.1 K/mm3 (0.0-0.1); Basophils Percent Auto 0.5 % (0.2-1.2); Eosinophils Absolute Auto 0.1 K/mm3 (0-0.3); Eosinophils Percent Auto 1.1 % (0-4.4); Hematocrit 42.3 % (42.0-52.0); Hemoglobin 14.1 g/dL (14.0-18.0); Immature Granulocyte Absolute 0.04 K/mm3 (0.00-0.031); Immature Granulocyte Percent A 0.4 % (0-0.5); Lymphocytes Absolute Auto 1.51 K/mm3 (0.9-3.2); Lymphocytes Percent Auto 16.4 % (18.3-44.2); Mean Corpuscular HGB Conc 33.3 g/dl (32-36); Mean Corpuscular Hemoglobin 29.5 pg (26-34); Mean Corpuscular Volume 88.5 fl (80-100); Mean Platelet Volume 9.5 fl (7.4-10.4); Monocytes Percent Auto 10.3 % (2.6-8.5); Neutrophils Absolute Auto 6.5 K/mm3 (1.3-6.7); Neutrophils Percent Auto 71.3 % (45.5-73.1); Platelet Count Result 239 k/mm3 (150-375); Red Blood Count 4.78 M/mm3 (4.6-6.20); Red Cell Distribution Width 12.3 % (11.5-14.5); White Blood Count 9.2 K/mm3 (4.5-10.0)
[2020-11-08 02:45] LABS: Alanine Aminotransferase 21 U/L (4-50); Albumin Level 4.2 g/dL (3.5-5.1); Alkaline Phosphatase 79 U/L (38-126); Anion Gap 9 mmol/L (8-16); Aspartate Amino Transferase 24 U/L (17-59); Bilirubin,Total 0.3 mg/dL (0.2-1.3); Blood Urea Nitrogen 19 mg/dL (9-20); Calcium 9.2 mg/dL (8.4-10.2); Carbon Dioxide 27 mmol/L (22-30); Chloride 103 mmol/L (98-107); Creatine Kinase 173 U/L (55-170); Estimated Glomerular Filt Rate > 60; Glucose 91 mg/dL (65-110); Potassium 3.4 mmol/L (3.4-5.0); Sodium 139 mmol/L (137-145)
[2020-11-08 02:56] LABS: Troponin I < 0.012 ng/mL (0.000-0.034)
--- NOTE | 2020-11-08 03:25 | ED.GENADULT ---
HPI - General Adult General Chief complaint: Unspecified Stated complaint: pain all over after taking latuda Time Seen by Provider: 11/08/20 01:27 Source: patient, family and RN notes reviewed Mode of arrival: ambulatory Limitations: no limitations History of Present Illness HPI narrative: This is a 29 year old male with history Bipolar disorder who presents for evaluation of possible medication side effect. He states that he was started on Zoloft and Abilify in the beginning of September. After taking those medications, he states he developed nausea, vomiting and abnormal extremity jerking with tremors. He states he was tapered off his Abilify 3 days ago and he was started on Latuda. He states 2 days ago he fell due to abnormal jerking. He was evaluated in the ER and he was discharged home. He states tonight after he took his 3rd dose of Latuda and he developed tremors and jerking again. Related Data Home Medications Medication Instructions Recorded Confirmed folic acid 1 mg PO DAILY 07/28/20 08/06/20 hydroxyzine HCl 25 mg PO BID 07/28/20 08/06/20 lithium carbonate 150 mg PO BID 07/28/20 08/06/20 olanzapine 10 mg PO HS 07/28/20 08/06/20 benztropine 2 mg PO BID 08/05/20 08/06/20 guanfacine 2 mg PO BID 08/05/20 08/06/20 Adult One Daily Multivitamin 1 tablet PO DAILY 08/06/20 08/06/20 cholecalciferol (vitamin D3) 10 mcg PO DAILY 08/06/20 08/06/20 [Vitamin D3] buspirone 5 mg TID 09/21/20 09/21/20 aripiprazole mg 10/15/20 10/15/20 sertraline mg 10/15/20 Allergies Allergy/AdvReac Type Severity Reaction Status Date / Time gluten Allergy Severe Vomiting Verified 11/08/20 01:05 levothyroxine sodium Allergy Intermediate Depression Verified 11/08/20 01:05 ibuprofen Allergy Unknown Unknown Verified 11/08/20 01:05 lamotrigine Allergy Unknown Unknown Verified 11/08/20 01:05 Review of Systems Review of Systems: All systems reviewed & are unremarkable except as noted in HPI and below PMFSH Past Medical History Medical History ADHD Anxiety Bipolar 1 disorder Surgical History Surgical History H/O inguinal hernia repair Family History Family History Mother Patient's mother is in good health Father Patient's father is in good health Social History Social History Smoking status: Never smoker Second hand tobacco smoke exposure: No Alcohol intake: never Substance use: never Substance use type: does not use Gender identity (if verbalized by the patient): Male Spiritual care concerns: No Exam Narrative: Exam Narrative: GENERAL: Well-appearing, well-nourished, and in no acute distress. HEAD: Normocephalic, right posterior scalp with bree in place to laceration, no drainage EYES: PERRLA and EOMI, conjunctiva clear without discharge THROAT:Mucous membranes moist, Oropharynx normal without erythema, exudate, peritonsillar swelling or fluctuance NECK: Supple, without lymphadenopathy or mass RESPIRATORY: No respiratory distress, Airway patent, Respirations non-labored, Clear to auscultation without rales, rhonchi or wheeze HEART: Regular rate and rhythm. No murmur heard. Normal peripheral pulses. ABDOMEN: Soft, nontender, nondistended, normal active bowel sounds. No masses. No rebound or guarding, No organomegaly. EXTREMITIES: No edema, normal strength with full range of motion. SKIN: Warm, dry, normal color without rash NEURO: Alert and oriented x3. CN 2-12 grossly intact. No focal deficits. PSYCH: Normal mood and affect. Course Reevaluation(s) Reevaluation #1: Patient is not having any rigidity, tremors or abnormal jerking. He will follow up with provider today about his medicatoin. He will hold on taking medications Date: 11/08/20 Time: 04:10 Vital Signs Vital signs: Lauren
[2020-11-08 03:36] VITALS: BP 148/78; PULSE 88; RESP 18; O2SAT 100
== END 2020-11-08 04:36 | disposition home or self-care (01) ==
PROVIDERS: Emergency Provider General Practice; PCP Physician Assistant
DX: G25.1 Drug-induced tremor (principal); T43.295A Adverse effect of other antidepressants, initial encounter; F90.9 Attention-deficit hyperactivity disorder, unspecified type; F31.9 Bipolar disorder, unspecified; F41.9 Anxiety disorder, unspecified; R94.31 Abnormal electrocardiogram [ECG] [EKG]
CPT/HCPCS: 36415; 80053; 82550; 84484; 85025; 93005; 99284

== ENCOUNTER 2021-08-21 20:59 | Emergency (ER) | payer BC, SELFPAY ==
[2021-08-21] VITALS (8 sets, daily range): BP systolic 131; BP diastolic 78; PULSE 52–86; RESP 19–24; TEMP 36.8; O2SAT 96–100
--- NOTE | ~2021-08-21 | CT_ITS ---
EXAMINATION: CT brain wo con DATE: 08/21/2021 21:44 INDICATION: head injury, vomiting TECHNIQUE: Computed tomography (CT) of the head was performed without intravenous contrast. The mA wa s adjusted according to patient size. Iterative reconstruction technique was employed. The dose-lengt h product was 605.33 mGy-cm. COMPARISON: 08/06/20, 08/05/2020. FINDINGS: No acute intracranial hemorrhage or extra-axial fluid collection. No hydrocephalus, mass, or herniation. No acute ischemic infarct. Unremarkable dural venous sinus attenuation. No acute osseous abnormality. Mucosal thickening in the bilateral maxillary, ethmoid, and frontal sinuses, otherwise the aerated sp aces are clear. IMPRESSION: No acute intracranial process. Reviewed, dictated and finalized at location K.
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
--- NOTE | 2021-08-21 21:30 | PC.NURSE ---
Patient taken to CT via stretcher.
[2021-08-21 21:54] LABS: Basophils Absolute Auto 0.1 K/mm3 (0.0-0.1); Basophils Percent Auto 0.7 % (0.2-1.2); Eosinophils Absolute Auto 0.1 K/mm3 (0-0.3); Eosinophils Percent Auto 0.8 % (0-4.4); Hematocrit 43.3 % (42.0-52.0); Hemoglobin 14.2 g/dL (14.0-18.0); Immature Granulocyte Absolute 0.06 K/mm3 (0.00-0.031); Immature Granulocyte Percent A 0.5 % (0-0.5); Lymphocytes Absolute Auto 1.72 K/mm3 (0.9-3.2); Lymphocytes Percent Auto 14.4 % (18.3-44.2); Mean Corpuscular HGB Conc 32.8 g/dl (32-36); Mean Corpuscular Hemoglobin 28.9 pg (26-34); Mean Corpuscular Volume 88.2 fl (80-100); Mean Platelet Volume 9.5 fl (7.4-10.4); Monocytes Absolute Auto 1.3 K/mm3 (0.1-0.6); Monocytes Percent Auto 10.5 % (2.6-8.5); Neutrophils Absolute Auto 8.8 K/mm3 (1.3-6.7); Neutrophils Percent Auto 73.1 % (45.5-73.1); Platelet Count Result 254 k/mm3 (150-375); Red Blood Count 4.91 M/mm3 (4.6-6.20); Red Cell Distribution Width 12.2 % (11.5-14.5)
[2021-08-21 22:04] LABS: Alanine Aminotransferase 22 U/L (6-50); Albumin Level 4.8 g/dL (3.5-5.1); Alkaline Phosphatase 106 U/L (38-126); Anion Gap 8 mmol/L (8-16); Aspartate Amino Transferase 28 U/L (17-59); Bilirubin,Total 0.4 mg/dL (0.2-1.3); Blood Urea Nitrogen 21 mg/dL (9-20); Carbon Dioxide 28 mmol/L (22-30); Chloride 100 mmol/L (98-107); Estimated CRCL calculation 117 ml/min; Estimated Glomerular Filt Rate > 60; Ethanol < 10 mg/dL (<10); Glucose 106 mg/dL (65-110); INR 1.1; Potassium 3.8 mmol/L (3.4-5.0); Prothrombin Time 13.9 Seconds (11.1-14.7); Sodium 136 mmol/L (137-145)
[2021-08-21 22:05] LABS: Partial Thromboplastin Time 44.9 SECONDS (22.3-36.8)
[2021-08-21] MEDS: ONDANSETRON INJ 4 MG/2 ML VIAL IV PUSH (22:44)
[2021-08-21 23:09] LABS: Amphetamine Screen Urine Negative (Negative); Barbiturate Screen Urine Negative (Negative); Benzodiazepines Screen Urine Negative (Negative); Cannabinoid Screen Urine Negative (Negative); Cocaine Screen Urine Negative (Negative); Methadone Screen Urine Negative (Negative); Opiate Screen Urine Negative (Negative); Phencyclidine Screen Urine Negative (Negative)
[2021-08-21 23:10] LABS: Appearance Urine Clear (Clear); Bilirubin Urine Negative (Negative); Color Urine Yellow (Yellow); Glucose Urine UA Negative (Negative); Ketones Urine 1+ mg/dL (Negative); Leukocyte Esterase Ur Negative LEU/UL (Negative); Nitrate Urine Negative (Negative); Protein Urine Negative (Negative); Specific Grav Ur >= 1.030 (1.001-1.035); Urobilinogen Urine 0.2 mg/dL (<2.0); pH Urine 5.5 (5.0-9.0)
[2021-08-21 23:12] LABS: Add Urine Microscopic? YES; Blood Urine Trace (Negative)
[2021-08-21 23:13] LABS: Bacteria Urine Trace /hpf; Mucus Urine Rare /lpf; RBC Urine 0-2 /hpf (0-2); WBC Urine 0-3 /hpf
[2021-08-22 00:55] VITALS: BP 108/70; PULSE 67; RESP 15; O2SAT 98
== END 2021-08-22 01:00 | disposition home or self-care (01) ==
PROVIDERS: Physician Assistant; Emergency Provider Emergency Medicine
DX: S06.0X1A Concussion with loss of consciousness of 30 minutes or less, initial encounter (principal); F90.9 Attention-deficit hyperactivity disorder, unspecified type; F31.9 Bipolar disorder, unspecified; F41.9 Anxiety disorder, unspecified; Y04.2XXA Assault by strike against or bumped into by another person, initial encounter
CPT/HCPCS: 36415; 70450; 80053; 80307; 81001; 84443; 85025; 85610; 85730; 96365; 96375; 99284; J0131; J2405

== ENCOUNTER 2021-08-22 16:03 | Emergency (ER) | payer BC, SELFPAY ==
--- NOTE | 2021-08-22 16:14 | ECG_ITS ---
Measurements Intervals [place] Rate: 74 P: 48 WI: 141 QRS: 75 QRSD: 110 T: 21 QT: 363 QTc: 404 Interpretive Statements SINUS RHYTHM INCOMPLETE RIGHT BUNDLE BRANCH BLOCK BORDERLINE ECG Electronically Signed On 08-22-2021 16:46:55 CDT by Javier Beckwith D.O.
[2021-08-22 16:32] VITALS: BP 136/86; PULSE 74; RESP 16; TEMP 36; O2SAT 99
[2021-08-22 16:39] VITALS: BP 142/77; PULSE 74; RESP 17; O2SAT 98
[2021-08-22 16:48] LABS: Basophils Absolute Auto 0.1 K/mm3 (0.0-0.1); Basophils Percent Auto 0.5 % (0.2-1.2); Eosinophils Absolute Auto 0.2 K/mm3 (0-0.3); Eosinophils Percent Auto 1.9 % (0-4.4); Hematocrit 42.3 % (42.0-52.0); Hemoglobin 13.8 g/dL (14.0-18.0); Immature Granulocyte Absolute 0.04 K/mm3 (0.00-0.031); Immature Granulocyte Percent A 0.4 % (0-0.5); Lymphocytes Percent Auto 15.9 % (18.3-44.2); Mean Corpuscular HGB Conc 32.6 g/dl (32-36); Mean Corpuscular Hemoglobin 28.8 pg (26-34); Mean Corpuscular Volume 88.3 fl (80-100); Mean Platelet Volume 8.9 fl (7.4-10.4); Monocytes Absolute Auto 0.9 K/mm3 (0.1-0.6); Monocytes Percent Auto 9.2 % (2.6-8.5); Neutrophils Absolute Auto 7.3 K/mm3 (1.3-6.7); Neutrophils Percent Auto 72.1 % (45.5-73.1); Platelet Count Result 244 k/mm3 (150-375); Red Blood Count 4.79 M/mm3 (4.6-6.20); Red Cell Distribution Width 12.1 % (11.5-14.5); White Blood Count 10.1 K/mm3 (4.5-10.0)
[2021-08-22 16:59] LABS: Alanine Aminotransferase 20 U/L (6-50); Albumin Level 4.2 g/dL (3.5-5.1); Alkaline Phosphatase 94 U/L (38-126); Anion Gap 5 mmol/L (8-16); Aspartate Amino Transferase 25 U/L (17-59); Bilirubin,Total 0.2 mg/dL (0.2-1.3); Blood Urea Nitrogen 19 mg/dL (9-20); Calcium 8.8 mg/dL (8.4-10.2); Carbon Dioxide 29 mmol/L (22-30); Chloride 103 mmol/L (98-107); Estimated CRCL calculation 106 ml/min; Estimated Glomerular Filt Rate > 60; Glucose 94 mg/dL (65-110); Potassium 3.8 mmol/L (3.4-5.0); Sodium 137 mmol/L (137-145)
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
== END 2021-08-22 18:00 | disposition home or self-care (01) ==
PROVIDERS: Emergency Medicine; Emergency Provider Emergency Medicine
DX: S06.0X1D Concussion with loss of consciousness of 30 minutes or less, subsequent encounter (principal); F41.9 Anxiety disorder, unspecified; F90.9 Attention-deficit hyperactivity disorder, unspecified type; F31.9 Bipolar disorder, unspecified; I45.10 Unspecified right bundle-branch block; W51.XXXD Accidental striking against or bumped into by another person, subsequent encounter
CPT/HCPCS: 36415; 80053; 85025; 93005; 99284

== ENCOUNTER 2021-11-19 10:24 | Emergency (ER) | payer BC, SELFPAY ==
[2021-11-19] VITALS (12 sets, daily range): BP systolic 93–122; BP diastolic 53–78; PULSE 68–85; RESP 14–29; O2SAT 97–100
--- NOTE | ~2021-11-19 | XR_ITS ---
XR chest 2V DATE: 11/19/2021 11:03 INDICATION: Chest pain TECHNIQUE: PA and lateral views COMPARISON: 04/26/2020 portable AP chest FINDINGS: Normal heart size. No hilar or mediastinal enlargement. No pulmonary infiltrate or consolid ation, pleural effusion or pulmonary vascular congestion or pneumothorax. IMPRESSION: No active cardiopulmonary disease Reviewed, dictated and finalized at location A.
--- NOTE | 2021-11-19 10:34 | ECG_ITS ---
Measurements Intervals [place] Rate: 74 P: 50 LA: 155 QRS: 77 QRSD: 100 T: 34 QT: 385 QTc: 429 Interpretive Statements SINUS RHYTHM INCOMPLETE RIGHT BUNDLE BRANCH BLOCK BORDERLINE ECG COMPARED TO ECG 08/22/2021 16:42:01 NO SIGNIFICANT CHANGES Electronically Signed On 11-19-2021 14:50:07 CDT by Daniel Dubois M.D.
[2021-11-19 11:10] LABS: Basophils Absolute Auto 0.1 K/mm3 (0.0-0.1); Basophils Percent Auto 0.7 % (0.2-1.2); Eosinophils Absolute Auto 0.1 K/mm3 (0-0.3); Eosinophils Percent Auto 1.1 % (0-4.4); Hematocrit 42.1 % (42.0-52.0); Hemoglobin 13.9 g/dL (14.0-18.0); Immature Granulocyte Absolute 0.05 K/mm3 (0.00-0.031); Immature Granulocyte Percent A 0.6 % (0-0.5); Lymphocytes Absolute Auto 1.48 K/mm3 (0.9-3.2); Lymphocytes Percent Auto 17.9 % (18.3-44.2); Mean Corpuscular Hemoglobin 28.7 pg (26-34); Mean Platelet Volume 9.3 fl (7.4-10.4); Monocytes Absolute Auto 0.9 K/mm3 (0.1-0.6); Monocytes Percent Auto 10.8 % (2.6-8.5); Neutrophils Absolute Auto 5.7 K/mm3 (1.3-6.7); Neutrophils Percent Auto 68.9 % (45.5-73.1); Platelet Count Result 245 k/mm3 (150-375); Red Blood Count 4.84 M/mm3 (4.6-6.20); Red Cell Distribution Width 12.8 % (11.5-14.5); White Blood Count 8.3 K/mm3 (4.5-10.0)
[2021-11-19] MEDS: LORazepam INJ (*CRX) 2 MG/ML VIAL 0.5 MG IV PUSH (11:12)
[2021-11-19] MEDS: ASPIRIN 81 MG CHEWABLE TABLET 324 MG PO (11:12)
[2021-11-19 11:22] LABS: Alanine Aminotransferase 21 U/L (6-50); Albumin Level 4.4 g/dL (3.5-5.1); Alkaline Phosphatase 79 U/L (38-126); Anion Gap 10 mmol/L (8-16); Aspartate Amino Transferase 25 U/L (17-59); Bilirubin,Total 0.5 mg/dL (0.2-1.3); Blood Urea Nitrogen 19 mg/dL (9-20); Calcium 8.7 mg/dL (8.4-10.2); Carbon Dioxide 29 mmol/L (22-30); Chloride 100 mmol/L (98-107); Estimated CRCL calculation 130 ml/min; Estimated Glomerular Filt Rate > 60; Glucose 99 mg/dL (65-110); Lipase 85 U/L (23-300); Sodium 139 mmol/L (137-145)
[2021-11-19 11:23] LABS: INR 1.1; Prothrombin Time 13.5 Seconds (11.1-14.7)
[2021-11-19 11:24] LABS: Partial Thromboplastin Time 34.4 SECONDS (22.3-36.8)
[2021-11-19 11:32] LABS: Troponin I < 0.012 ng/mL (0.000-0.034)
--- NOTE | 2021-11-19 12:55 | ED.CHESTPAIN ---
HPI - Chest Pain General Chief Complaint: Chest Pain Stated Complaint: chest pain Time Seen by Provider: 11/19/21 10:49 History of Present Illness HPI narrative: 30yoM p/w chest pain and kelsea, has h/o anxiety attack and this feels similar. States he has had a 'heart attack' before but unable to elaborate on this; not seeing cardiology, no risk factors. Related Data Home Medications Medication Instructions Recorded Confirmed folic acid 1 mg tablet 1 mg PO DAILY 07/28/20 08/06/20 olanzapine 10 mg tablet 7 mg PO HS 07/28/20 08/06/20 cholecalciferol (vitamin D3) 10 10 mcg PO DAILY 08/06/20 08/06/20 mcg (400 unit) tablet (Vitamin D3) multivitamin with minerals-folic 1 tablet PO DAILY 08/06/20 08/06/20 acid 0.4 mg tablet (Adult One Daily Multivitamin) buspirone 5 mg tablet 5 mg TID 09/21/20 09/21/20 sertraline 50 mg tablet 100 mg 10/15/20 Allergies Allergy/AdvReac Type Severity Reaction Status Date / Time levothyroxine sodium Allergy Intermediate Depression Verified 11/19/21 10:51 ibuprofen Allergy Unknown Unknown Verified 11/19/21 10:51 lamotrigine Allergy Unknown Unknown Verified 11/19/21 10:51 Review of Systems Review of Systems: CONST: No fever. HEENT: No sore throat C/V: Chest pain RESP: [place] GI: No n/v : No dysuria. M/S: No joint pain. SKIN: No rash. NEURO: [No headache or focal numbness or weakness] PSYCH: [No depression] [facility] Past Medical History Medical History ADHD Anxiety Bipolar 1 disorder Surgical History Surgical History H/O inguinal hernia repair Family History Family History Mother Patient's mother is in good health Father Patient's father is in good health Social History Social History Smoking status: Never smoker Second hand tobacco smoke exposure: No Alcohol intake: never Substance use: never Substance use type: does not use Gender identity (if verbalized by the patient): Male Sexual Orientation (if Verbalized by the Patient): Straight or Heterosexual Spiritual care concerns: No Exam Narrative: EXAMINATION OF ORGAN SYSTEMS/BODY AREAS: Constitutional: Vital signs per nursing GENERAL:Appears anxious HEAD: Normal with no signs of head trauma. EYES: EOMI, conjunctiva normal ENT: Hearing grossly intact LUNGS: Slight tachypnea. HEART: [Regular rate and rhythm] ABD: [Soft], [nontender to palpation] EXT: Normal range of motion, no YOSSI SKIN: [No rashes or lesions.] NEURO: [Alert and oriented x 3. No gross focal sensory or strength deficits.] PSYCH: Normal affect Course Vital Signs Vital signs: Vital Signs Pulse Rate 76 11/19/21 10:36 Respiratory Rate 22 H 11/19/21 10:36 Blood Pressure 120/69 11/19/21 10:36 Pulse Oximetry 99 11/19/21 10:36 Oxygen Delivery Room Air 11/19/21 10:36 Pulse Rate 78 11/19/21 13:02 Respiratory Rate 18 11/19/21 13:02 Blood Pressure 122/78 11/19/21 13:02 Pulse Oximetry 99 11/19/21 13:02 Oxygen Delivery Room Air 11/19/21 10:36 MDM - Chest Pain MDM Narrative Medical decision making narrative: ED COURSE AND MEDICAL DECISION MAKIN-year-old male presenting with chest pain. EKG done in triage negative for acute ischemic changes. Cardiac workup is initiated. EKG: Performed in triage and interpreted by me. Normal sinus rhythm. Rate 74. Normal axis. MA normal. QRS duration normal. QTc normal. No pathologic Q waves. No ST segment elevation or depression to suggest acute ischemia. No RV strain pattern. HEART score is 0 with no acute ischemic changes on EKG and negative troponin making ACS unlikely. Negative PERC making PE unlikely. Presentation not consistent with dissection or aneurysm without radiation of pain or pulse deficits. CXR negative for mediastinal widening. No abdominal pain
== END 2021-11-19 13:03 | disposition home or self-care (01) ==
PROVIDERS: Emergency Provider Emergency Medicine
DX: F41.9 Anxiety disorder, unspecified (principal); F31.9 Bipolar disorder, unspecified; I45.10 Unspecified right bundle-branch block
CPT/HCPCS: 36415; 71046; 80053; 83690; 84484; 85025; 85610; 85730; 93005; 96374; 99284; A9270; J2060

== ENCOUNTER 2021-11-24 19:39 | Emergency (ER) | payer BC, SELFPAY ==
[2021-11-24 19:51] VITALS: BP 140/87; PULSE 72; TEMP 36.6; O2SAT 100
--- NOTE | 2021-11-24 19:53 | ED.NAVMDI ---
HPI - Nausea/Vomiting/Diarrhea General Chief complaint: Nausea/Vomiting/Diarrhea Stated complaint: nausea, vomiting and abd pain Time Seen by Provider: 11/24/21 19:49 History of Present Illness HPI Narrative: 30 year-old male presents emergency room accompanied by his . He comes in secondary to onset about 4:00 this afternoon of some nausea, vomiting, diarrhea, and abdominal cramps. He states that happened about an hour after he went to [facility]. No one else at home has been sick. He not had any vomiting of any blood. No blood in his stool. Denies any urinary complaints. No history of any GI issues in the past. He does have a history of anxiety and depression. Related Data Home Medications Medication Instructions Recorded Confirmed folic acid 1 mg tablet 1 mg PO DAILY 07/28/20 08/06/20 olanzapine 10 mg tablet 7 mg PO HS 07/28/20 08/06/20 cholecalciferol (vitamin D3) 10 10 mcg PO DAILY 08/06/20 08/06/20 mcg (400 unit) tablet (Vitamin D3) multivitamin with minerals-folic 1 tablet PO DAILY 08/06/20 08/06/20 acid 0.4 mg tablet (Adult One Daily Multivitamin) buspirone 5 mg tablet 5 mg TID 09/21/20 09/21/20 sertraline 50 mg tablet 100 mg 10/15/20 Allergies Allergy/AdvReac Type Severity Reaction Status Date / Time levothyroxine sodium Allergy Intermediate Depression Verified 11/24/21 20:17 ibuprofen Allergy Unknown Unknown Verified 11/24/21 20:17 lamotrigine Allergy Unknown Unknown Verified 11/24/21 20:17 Review of Systems Review of Systems: CONSTITUTIONAL: Denies fever, chills, or sweats. EYES: Denies visual changes, redness, or discharge. ENT: Denies rhinorrhea, congestion, sore throat, or otalgia. CARDIOVASCULAR: Denies chest pain, palpitations, or edema. RESPIRATORY: Denies cough or dyspnea. GASTROINTESTINAL: Cramping abdominal pain with associated nausea, vomiting, and diarrhea GENITOURINARY: Denies dysuria or hematuria. SKIN: Denies rash or itching. MUSCULOSKELETAL: Denies back pain, joint pain, or myalgia. NEUROLOGIC: Denies headache, numbness, or weakness. PSYCHIATRIC: History of anxiety and depression [facility] Past Medical History Medical History ADHD Anxiety Bipolar 1 disorder Surgical History Surgical History H/O inguinal hernia repair Family History Family History Mother Patient's mother is in good health Father Patient's father is in good health Social History Social History Smoking status: Never smoker Second hand tobacco smoke exposure: No Alcohol intake: never Substance use: never Substance use type: does not use Gender identity (if verbalized by the patient): Male Sexual Orientation (if Verbalized by the Patient): Straight or Heterosexual Spiritual care concerns: No Exam Narrative: APPEARANCE: Well appearing, no pain or distress, well-nourished. Head Normocephalic and atraumatic. EYES: PERRLA/EOMI, conjunctivae clear. NOSE: Normal with no drainage EARS:TMS clear with Brandon, with good light reflex. THROAT: Pharynx clear, no exudate. NECK: Supple. No adenopathy, no masses. RESPIRATORY: Airway patent, respirations nonlabored. Clear to auscultation bilaterally, no rales, rhonchi, wheezing. CARDIOVASCULAR: Regular rate and rhythm without murmurs, rubs, or gallops. ABDOMINAL: Soft, nontender, nondistended, no hepatosplenomegaly. Hyperactive bowel sounds Musculoskeletal: Moves all extremities. Strength/ROM intact, No edema, No calf tenderness. NEURO: Alert. Cranial nerves II through XII intact. Normal gait. Good coordination. Nonfocal examination. SKIN:: Warm, dry. Normal Color PSYCHIATRIC: Normal affect/mood, normal interaction Course Course Emergency Course: Patient had IV established and given a liter of normal saline wide open. Given Zofran 4 mg IV as well as [place]
[2021-11-24 19:59] VITALS: BP 131/86; RESP 16; O2SAT 98
[2021-11-24] MEDS: ONDANSETRON INJ 4 MG/2 ML VIAL IV PUSH (20:12)
[2021-11-24] MEDS: SODIUM CHLORIDE 0.9% IV 1,000 ML 999 ML IV CONT (20:12)
[2021-11-24] MEDS: DICYCLOMINE HCL INJ 20 MG/2 ML VIAL IM (20:12)
[2021-11-24 21:31] VITALS: BP 155/64; PULSE 68; RESP 18; O2SAT 99
== END 2021-11-24 21:33 | disposition home or self-care (01) ==
PROVIDERS: Emergency Provider Emergency Medicine
DX: K52.9 Noninfective gastroenteritis and colitis, unspecified (principal); F90.9 Attention-deficit hyperactivity disorder, unspecified type; F41.9 Anxiety disorder, unspecified; F31.9 Bipolar disorder, unspecified
CPT/HCPCS: 96361; 96372; 96374; 99284; J0500; J2405; J7030

== ENCOUNTER 2022-06-02 19:05 | Emergency (ER) | payer BC, SELFPAY ==
[2022-06-02] VITALS (9 sets, daily range): BP systolic 128–153; BP diastolic 79–92; PULSE 64–79; RESP 18; TEMP 36.4; O2SAT 93–100
--- NOTE | ~2022-06-02 | CT_ITS ---
EXAMINATION: CT BRAIN W/O DATE: 06/02/2022 20:39 INDICATION: Facial trauma TECHNIQUE: Computed tomography (CT) of the head was performed without intravenous contrast. The dose- length product was 605.33 mGy-cm. Automated exposure control and iterative reconstruction technique were employed. COMPARISON: 08/21/2021 FINDINGS: Normal brain parenchymal volume for age. Normal shankar-white differentiation. No acute intrac ranial hemorrhage, infarction, mass or mass effect. No ventriculomegaly or midline shift. Midline sagittal images demonstrate a normal corpus callosum, c raniovertebral junction and sella turcica. Basilar cisterns are patent. Paranasal sinuses and mastoids are pneumatized. No depressed skull fractures. IMPRESSION: 1. No acute intracranial abnormality. Reviewed, dictated and finalized at location A. BEADER
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
[2022-06-02] MEDS: HYDROmorphone HCL INJ (*CRX) 1 MG/ML SYR 0.5 MG IV PUSH (20:50)
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
[2022-06-02] MEDS: FLUORESCEIN SOD 1 MG/STRIP EACH EYE (20:56)
[2022-06-02] MEDS: TETRACAINE HCL 0.5% OPHTH SOLN 4 ML BTL 1 DROP EACH EYE (20:56)
[2022-06-02] MEDS: ONDANSETRON INJ 4 MG/2 ML VIAL IV PUSH (20:56)
[2022-06-02] MEDS: LORazepam INJ (*CRX) 2 MG/ML VIAL 1 MG IV PUSH (20:56)
== END 2022-06-02 23:28 | disposition home or self-care (01) ==
PROVIDERS: Emergency Provider Emergency Medicine
DX: S05.12XA Contusion of eyeball and orbital tissues, left eye, initial encounter (principal); S05.02XA Injury of conjunctiva and corneal abrasion without foreign body, left eye, initial encounter; F90.9 Attention-deficit hyperactivity disorder, unspecified type; F41.9 Anxiety disorder, unspecified; F31.9 Bipolar disorder, unspecified; W20.8XXA Other cause of strike by thrown, projected or falling object, initial encounter
CPT/HCPCS: 70450; 70486; 96374; 96375; 99284; J1170; J2060; J2405

== ENCOUNTER 2022-07-06 15:03 | Emergency (ER) | payer BC, SELFPAY ==
--- NOTE | ~2022-07-06 | CT_ITS ---
CT of the Abdomen and Pelvis: Indication: Abdominal Technique: 2.5 mm axial scans were obtained through the abdomen and pelvis following intravenous adm inistration of 100 cc of Omnipaque 350. Dose reduction technique was used on this scan by utilizing a utomated exposure control and iterative reconstruction technique. The dose-length product (DLP) was 8 85.05 mGy-cm. COMPARISON: 10/09/2019 Findings: Scans through the lung bases are unremarkable. The liver, spleen, pancreas, gallbladder, adrenals and kidneys are within normal limits. No evidence of aortic aneurysm. No lymphadenopathy. No bowel obstruction or bowel wall thickening. There is no evidence to suggest acute appendicitis. Images through the pelvis were performed. Fatima catheter present in the urinary bladder. Prostate gla nd and seminal vesicles are unremarkable. No ascites. Impression: No significant abnormalities seen. Reviewed, dictated and finalized at [facility]. Impression: No significant abnormalities seen.
--- NOTE | ~2022-07-06 | US_ITS ---
US scrotum doppler DATE: 07/06/2022 22:09 INDICATION: Scrotal pain. Urinary retention. TECHNIQUE: Real-time and color flow imaging and Doppler analysis of the scrotal contents COMPARISON: None FINDINGS: Right testicle measures 4.6 x 2.3 x 3.2 cm. Left testicle measures 4.8 x 2.2 x 2.7 cm. No t esticular mass lesion is detected. There is homogeneous symmetric echo texture of the testicles. Ther e is normal symmetric vascular flow. Epididymis appears unremarkable bilaterally. No hydroceles or varicoceles. IMPRESSION: Normal examination Reviewed, dictated and finalized at [facility] Reviewed, dictated and finalized at [facility]. IMPRESSION: Normal examination
[2022-07-06 15:35] VITALS: BP 136/100; PULSE 77; RESP 16; TEMP 36.8; O2SAT 100
[2022-07-06 20:10] VITALS: BP 119/66; PULSE 54; RESP 16; TEMP 36.3; O2SAT 99
--- NOTE | 2022-07-06 21:08 | ED.MALEGU ---
HPI - Male Genitourinary General Chief complaint: Urogenital-Male Stated complaint: decreased urinary output Time Seen by Provider: 07/06/22 20:33 Source: patient Mode of arrival: ambulatory Limitations: no limitations History of Present Illness HPI Narrative: Patient is a 31-year-old male who presents to the ED with report of urinary retention. Patient reports he has had issues with urination and not fully emptying bladder for the past 1 week. He was able to urinate a small amount this morning, but has not urinated since. He feels the urge to go, but is unable to. He reports having increased pressure in his lower abdomen/suprapubic region, going into his testicles. Patient reports a history of urinary retention 2 years ago in which she was seen at [facility] and followed with urology then. He has not seen urology since. Patient denies any significant dysuria, hematuria, nausea, vomiting, diarrhea, constipation, penile discharge, fevers, concern for STDs. Related Data Home Medications Medication Instructions Recorded Confirmed folic acid 1 mg tablet 1 mg PO DAILY 07/28/20 08/06/20 olanzapine 10 mg tablet 7 mg PO HS 07/28/20 08/06/20 cholecalciferol (vitamin D3) 10 10 mcg PO DAILY 08/06/20 08/06/20 mcg (400 unit) tablet (Vitamin D3) multivitamin with minerals-folic 1 tablet PO DAILY 08/06/20 08/06/20 acid 0.4 mg tablet (Adult One Daily Multivitamin) buspirone 5 mg tablet 5 mg TID 09/21/20 09/21/20 sertraline 50 mg tablet 100 mg 10/15/20 Allergies Allergy/AdvReac Type Severity Reaction Status Date / Time levothyroxine sodium Allergy Intermediate Depression Verified 07/06/22 15:39 ibuprofen Allergy Unknown Unknown Verified 07/06/22 15:39 lamotrigine Allergy Unknown Unknown Verified 07/06/22 15:39 Review of Systems Review of Systems: CONSTITUTIONAL: Denies fever, chills, or sweats. CARDIOVASCULAR: Denies chest pain. RESPIRATORY: Denies dyspnea. GASTROINTESTINAL: See HPI. GENITOURINARY: See HPI. SKIN: Denies rash or itching. MUSCULOSKELETAL: Denies back pain, joint pain, or myalgia. All systems reviewed & are unremarkable except as noted in HPI and below PMFSH Past Medical History Medical History ADHD Anxiety Bipolar 1 disorder Surgical History Surgical History H/O inguinal hernia repair Family History Family History Mother Patient's mother is in good health Father Patient's father is in good health Social History Social History Smoking status: Never smoker Second hand tobacco smoke exposure: No Alcohol intake: never Substance use: never Substance use type: does not use Gender identity (if verbalized by the patient): Male Sexual Orientation (if Verbalized by the Patient): Straight or Heterosexual Spiritual care concerns: No Exam Narrative: GENERAL: Well appearing, obese, non-toxic, in no acute distress. HEAD: Normocephalic, atraumatic. NECK: Supple. No adenopathy, no masses. RESPIRATORY: Airway patent, respirations nonlabored. Clear to auscultation bilaterally, no rales, rhonchi, wheezing. CARDIOVASCULAR: Regular rate and rhythm without murmurs, rubs, or gallops. Peripheral pulses 2+ and equal bilaterally. ABDOMINAL: Soft, appears somewhat distended. Tenderness throughout lower abdomen/suprapubic region, and in epigastric region. Normoactive BS. SCROTUM: Mild nonfocal tenderness to testicles bilaterally. No testicular swelling/redness/warmth. No penile discharge. No genital lesions. MUSCULOSKELETAL: Moves all extremities. Strength/ROM intact without gross deformities. SKIN: Warm, dry, normal color. No rashes. NEURO: A&O X3. Speech clear. Cranial nerves II-XII grossly intact. Steady gait. No ataxic movements. PSYCHIATRIC: [place]
[2022-07-06 22:08] LABS: Appearance Urine Clear (Clear); Bacteria Urine None Seen /hpf; Bilirubin Urine Negative (Negative); Color Urine Yellow (Yellow); Glucose Urine UA Negative (Negative); Ketones Urine Negative (Negative); Leukocyte Esterase Ur Negative LEU/UL (Negative); Nitrate Urine Negative (Negative); Non Pathogenic Casts 0-2; Protein Urine Negative (Negative); Specific Grav Ur 1.018 (1.001-1.035); Squamous Epithelial Cell Urine None seen /hpf (Few); Urobilinogen Urine 0.2 mg/dL (<2.0); WBC Urine 0-5 /hpf; pH Urine 6.5 (5.0-9.0)
[2022-07-06 22:10] LABS: Add Urine Microscopic? YES
[2022-07-06 22:36] LABS: Basophils Absolute Auto 0.1 K/mm3 (0.0-0.1); Basophils Percent Auto 0.7 % (0.2-1.2); Eosinophils Absolute Auto 0.1 K/mm3 (0-0.3); Eosinophils Percent Auto 0.9 % (0-4.4); Hematocrit 42.9 % (42.0-52.0); Hemoglobin 14.7 g/dL (14.0-18.0); Immature Granulocyte Absolute 0.03 K/mm3 (0.00-0.031); Immature Granulocyte Percent A 0.3 % (0-0.5); Lymphocytes Absolute Auto 2.11 K/mm3 (0.9-3.2); Lymphocytes Percent Auto 23.4 % (18.3-44.2); Mean Corpuscular HGB Conc 34.3 g/dl (32-36); Mean Corpuscular Hemoglobin 29.2 pg (26-34); Mean Corpuscular Volume 85.3 fl (80-100); Monocytes Absolute Auto 0.7 K/mm3 (0.1-0.6); Monocytes Percent Auto 7.9 % (2.6-8.5); Neutrophils Percent Auto 66.8 % (45.5-73.1); Platelet Count Result 255 k/mm3 (150-375); Red Blood Count 5.03 M/mm3 (4.6-6.20)
[2022-07-06 22:51] VITALS: BP 118/69; PULSE 70; RESP 18; TEMP 36.6; O2SAT 99
[2022-07-06 22:53] LABS: Alanine Aminotransferase 28 U/L (6-50); Albumin Level 4.7 g/dL (3.5-5.1); Alkaline Phosphatase 103 U/L (38-126); Anion Gap 8 mmol/L (8-16); Aspartate Amino Transferase 27 U/L (17-59); Bilirubin,Total 0.6 mg/dL (0.2-1.3); Blood Urea Nitrogen 14 mg/dL (9-20); Carbon Dioxide 27 mmol/L (22-30); Chloride 105 mmol/L (98-107); Estimated CRCL calculation 164 ml/min; Estimated Glomerular Filt Rate > 60; Glucose 93 mg/dL (65-110); Potassium 3.7 mmol/L (3.4-5.0); Sodium 140 mmol/L (137-145)
[2022-07-07 00:12] VITALS: BP 123/84; PULSE 89; RESP 18; TEMP 36.6; O2SAT 99
[2022-07-07 00:45] VITALS: BP 116/69; PULSE 70; RESP 18; TEMP 36.6; O2SAT 99
== END 2022-07-07 00:45 | disposition home or self-care (01) ==
PROVIDERS: Emergency Provider Physician Assistant
DX: R33.9 Retention of urine, unspecified (principal); F90.9 Attention-deficit hyperactivity disorder, unspecified type; F41.9 Anxiety disorder, unspecified
CPT/HCPCS: 36415; 51702; 74177; 76870; 80053; 81001; 85025; 93976; 99284; Q9967

== ENCOUNTER 2023-02-19 22:08 | Emergency (ER) | payer BC, SELFPAY ==
[2023-02-19 22:10] VITALS: BP 150/101; PULSE 74; RESP 19; TEMP 36.4; O2SAT 97
[2023-02-20 00:40] VITALS: BP 157/111; PULSE 71; RESP 15; TEMP 36.6; O2SAT 99
--- NOTE | 2023-02-20 01:04 | PC.NURSE ---
Patient is actively saying he does not want the catheter placed. Patient is A&Ox4
--- NOTE | 2023-02-20 01:08 | ED.GENADULT ---
HPI - General Adult General Chief complaint: Urogenital-Male Stated complaint: problems urinating Time Seen by Provider: 02/20/23 00:23 History of Present Illness HPI narrative: This is a 32-year-old male with history of urinary retention presenting ED with urinary retention. Patient says he has not been able to urinate since 2 days ago. He now has significant abdominal discomfort. No other symptoms. Related Data Home Medications Medication Instructions Recorded Confirmed folic acid 1 mg tablet 1 mg PO DAILY 07/28/20 08/06/20 olanzapine 10 mg tablet 7 mg PO HS 07/28/20 08/06/20 cholecalciferol (vitamin D3) 10 10 mcg PO DAILY 08/06/20 08/06/20 mcg (400 unit) tablet (Vitamin D3) multivitamin with minerals-folic 1 tablet PO DAILY 08/06/20 08/06/20 acid 0.4 mg tablet (Adult One Daily Multivitamin) buspirone 5 mg tablet 5 mg TID 09/21/20 09/21/20 sertraline 50 mg tablet 100 mg 10/15/20 Allergies Allergy/AdvReac Type Severity Reaction Status Date / Time levothyroxine sodium Allergy Intermediate Depression Verified 07/06/22 15:39 ibuprofen Allergy Unknown Unknown Verified 07/06/22 15:39 lamotrigine Allergy Unknown Unknown Verified 07/06/22 15:39 PMFSH Past Medical History Medical History ADHD Anxiety Bipolar 1 disorder Surgical History Surgical History H/O inguinal hernia repair Family History Family History Mother Patient's mother is in good health Father Patient's father is in good health Social History Social History Smoking status: Never smoker Second hand tobacco smoke exposure: No Alcohol intake: never Substance use: never Substance use type: does not use Gender identity (if verbalized by the patient): Male Sexual Orientation (if Verbalized by the Patient): Straight or Heterosexual Spiritual care concerns: No Exam Narrative: APPEARANCE: No apparent distress. Head: atraumatic. EYES: EOMI, NOSE: Atraumatic NECK: Trachea midline RESPIRATORY: No increased rate of breathing CARDIOVASCULAR: RRR, ABDOMINAL: Bowel mass in the suprapubic area with tenderness MUSCULOSKELETAl: No obvious deformities NEURO: Alert. Moving 4/4 extremities SKIN:: Warm, dry. Normal color PSYCHIATRIC: Normal affect Course Vital Signs Vital signs: Vital Signs Temperature 97.6 F 02/19/23 22:10 Pulse Rate 74 02/19/23 22:10 Respiratory Rate 19 02/19/23 22:10 Blood Pressure 150/101 H 02/19/23 22:10 Pulse Oximetry 97 02/19/23 22:10 Oxygen Delivery Room Air 02/19/23 22:10 Temperature 97.8 F 02/20/23 00:40 Pulse Rate 71 02/20/23 00:40 Respiratory Rate 15 02/20/23 00:40 Blood Pressure 157/111 H 02/20/23 00:40 Pulse Oximetry 99 02/20/23 00:40 Oxygen Delivery Room Air 02/19/23 22:10 Medical Decision Making MDM Narrative Medical decision making narrative: -Course: 32-year-old male with history urinary retention presenting with urinary retention. Fatima bag was placed. Urine not indicative of infection. Patient given Urology follow-up. -DDX includes but is not limited to: Urinary retention, urinary tract infection prostate issues -Co-morbidities complicating care: developmental delay -Social determinants of health: hypothyroid, anxiety, bipolar disorder -Independent interpretation of studies: urine not indicative of infection -Shared decision making / Disposition: discharged with urology follow-up Vital Signs Vital Signs: Vital Signs Temperature 97.6 F 02/19/23 22:10 Pulse Rate 74 02/19/23 22:10 Respiratory Rate 19 02/19/23 22:10 Blood Pressure 150/101 H 02/19/23 22:10 Pulse Oximetry 97 02/19/23 22:10 Oxygen Delivery Room Air 02/19/23 22:10 Temperature 97.8 F 02/20/23 00:40 Pulse Rate 71 11
[2023-02-20 01:24] LABS: Appearance Urine Clear (Clear); Bilirubin Urine Negative (Negative); Blood Urine Negative (Negative); Color Urine Yellow (Yellow); Glucose Urine UA Negative (Negative); Ketones Urine Negative (Negative); Leukocyte Esterase Ur Negative LEU/UL (Negative); Nitrate Urine Negative (Negative); Protein Urine Negative (Negative); Specific Grav Ur 1.018 (1.001-1.035); Urobilinogen Urine 0.2 mg/dL (<2.0); pH Urine 6.5 (5.0-9.0)
[2023-02-20 01:26] LABS: Add Urine Microscopic? NO
== END 2023-02-20 01:54 | disposition home or self-care (01) ==
PROVIDERS: Emergency Provider Emergency Medicine
DX: R33.9 Retention of urine, unspecified (principal); F90.9 Attention-deficit hyperactivity disorder, unspecified type; F41.9 Anxiety disorder, unspecified; F31.9 Bipolar disorder, unspecified
CPT/HCPCS: 51702; 81003; 99283

== ENCOUNTER 2023-05-28 06:25 | Emergency (ER) | payer BC, SELFPAY ==
[2023-05-28 06:26] VITALS: BP 128/87; PULSE 93; RESP 14; TEMP 36.4; O2SAT 99
--- NOTE | 2023-05-28 08:11 | ED.EAR ---
HPI - Ear Problem General Chief complaint: Ear Stated complaint: L ear pain Time Seen by Provider: 05/28/23 07:38 History of Present Illness HPI Narrative: Patient is a 32-year-old male who presents ER with reports of left ear pain. Reports has been a chronic issue. He has recently been treated with both steroids and oral antibiotics and just finished them. He is scheduled to see a dentist today to see if he has a dental issue that is causing the pain going into his ear. The pain is actually at the angle of the mandible inferior to the ear. Has no difficulty hearing. No sinus congestion or sore throat or productive cough. Related Data Home Medications Medication Instructions Recorded Confirmed folic acid 1 mg tablet 1 mg PO DAILY 07/28/20 08/06/20 olanzapine 10 mg tablet 7 mg PO HS 07/28/20 08/06/20 cholecalciferol (vitamin D3) 10 10 mcg PO DAILY 08/06/20 08/06/20 mcg (400 unit) tablet (Vitamin D3) multivitamin with minerals-folic 1 tablet PO DAILY 08/06/20 08/06/20 acid 0.4 mg tablet (Adult One Daily Multivitamin) buspirone 5 mg tablet 5 mg TID 09/21/20 09/21/20 sertraline 50 mg tablet 100 mg 10/15/20 Allergies Allergy/AdvReac Type Severity Reaction Status Date / Time levothyroxine sodium Allergy Intermediate Depression Verified 07/06/22 15:39 ibuprofen Allergy Unknown Unknown Verified 07/06/22 15:39 lamotrigine Allergy Unknown Unknown Verified 07/06/22 15:39 Review of Systems Constitutional: Constitutional: Denies chills and Denies fever(s) ENT: Denies dizziness, Denies nasal congestion and Denies sore throat Comments: Ear pain PMFSH Past Medical History Medical History ADHD Anxiety Bipolar 1 disorder Surgical History Surgical History H/O inguinal hernia repair Family History Family History Mother Patient's mother is in good health Father Patient's father is in good health Social History Social History Smoking status: Never smoker Second hand tobacco smoke exposure: No Alcohol intake: never Substance use: never Substance use type: does not use Gender identity (if verbalized by the patient): Male Sexual Orientation (if Verbalized by the Patient): Straight or Heterosexual Spiritual care concerns: No Exam Narrative: GENERAL: Well-appearing, well-nourished, and in no acute distress. HEAD: Normocephalic, atraumatic. ENT: Mucous membranes moist. normal dentition without dental abscess. TMs opaque and nonbulging bilaterally with evidence of old scarring from ear tubes. External ear nontender palpation. Parotid and submandibular glands nontender there is no facial asymmetry. NECK: Supple. NEURO: Alert and oriented x3. PSYCH: Normal mood and affect. Course Course Emergency Course: No evidence of infection. Recommend following up with his dentist in the next 2 hours As previously scheduled. Will avoid additional antibiotics as he is already been on antibiotics and there is no evidence of infection. Vital Signs Vital signs: Vital Signs Temperature 97.5 F L 05/28/23 06:26 Pulse Rate 93 05/28/23 06:26 Respiratory Rate 14 05/28/23 06:26 Blood Pressure 128/87 05/28/23 06:26 Pulse Oximetry 99 05/28/23 06:26 Oxygen Delivery Room Air 05/28/23 06:26 Temperature 97.5 F L 05/28/23 06:26 Pulse Rate 93 05/28/23 06:26 Respiratory Rate 14 05/28/23 06:26 Blood Pressure 128/87 05/28/23 06:26 Pulse Oximetry 99 05/28/23 06:26 Oxygen Delivery Room Air 05/28/23 06:26 Medical Decision Making Vital Signs Vital Signs: Vital Signs Temperature 97.5 F L 05/28/23 06:26 Pulse Rate 93 05/28/23 06:26 Respiratory Rate 14 05/28/23 06:26 Blood Pressure 128/87 05/28/23 06:26 Pulse Oximetry 99
== END 2023-05-28 08:41 | disposition home or self-care (01) ==
LOC: ANHED 08:21
PROVIDERS: Emergency Provider Emergency Medicine
DX: H92.02 Otalgia, left ear (principal); F90.9 Attention-deficit hyperactivity disorder, unspecified type; F41.9 Anxiety disorder, unspecified; F31.9 Bipolar disorder, unspecified
CPT/HCPCS: 99281